=== PATIENT | female | born 1985 | race Hispanic/Latino ===

== ENCOUNTER 2016-12-31 13:28 | Emergency (ER) | payer MEDICAID, MEDICARE ==
--- NOTE | 2016-12-31 14:24 | RAD ---
RIGHT ANKLE 3 VIEWS: Date: 12/31/16 HISTORY: Right ankle pain. FINDINGS/IMPRESSION: No fracture, dislocation, or bony destruction is seen. The ankle mortise is maintained. Vascular miguel angel cifications are present. POS: [facility]
== END 2016-12-31 14:23 | disposition home or self-care (01) ==
LOC: NAV ERS 13:28
DX: S93.401A Sprain of unspecified ligament of right ankle, initial encounter (principal); E11.9 Type 2 diabetes mellitus without complications; I10 Essential (primary) hypertension; E66.9 Obesity, unspecified; Z79.82 Long term (current) use of aspirin; Z79.899 Other long term (current) drug therapy; X58.XXXA Exposure to other specified factors, initial encounter

== ENCOUNTER 2017-01-28 11:29 | Emergency (ER) | payer MEDICARE ==
[2017-01-28] MEDS ORDERED: Ketorolac Tromethamine 60 MG/2 ML VIAL ONE (11:50)
== END 2017-01-28 11:58 | disposition home or self-care (01) ==
LOC: NAV ERS 11:29
DX: S29.012A Strain of muscle and tendon of back wall of thorax, initial encounter (principal); S39.011A Strain of muscle, fascia and tendon of abdomen, initial encounter; E11.9 Type 2 diabetes mellitus without complications; I10 Essential (primary) hypertension; E66.9 Obesity, unspecified; Z79.899 Other long term (current) drug therapy; Z79.82 Long term (current) use of aspirin; X58.XXXA Exposure to other specified factors, initial encounter
CPT/HCPCS: 96372; J1885

== ENCOUNTER 2017-01-29 10:46 | Outpatient (CLI) | payer MEDICARE ==
[2017-01-29 12:10] LABS: #Basophils 0.1 thou/uL (0.0-0.2); #Eosinphils 0.3 thou/uL (0.0-0.7); #Lymphocytes 1.6 thou/uL (1.20-3.40); #Monocytes 0.5 thou/uL (0.11-0.59); %Basophils 0.6 % (0.0-1.0); %Eosinophils 3.6 % (0.0-10.0); %Lymphocytes 18.7 % (21.0-51.0); %Monocytes 6.4 % (0.0-10.0); %Neutrophils 70.7 % (42.0-75.0); Mean Corpuscular HGB CONC 30.7 g/dL (32.0-36.0); Mean Corpuscular Hemoglobin 27.6 pg (27.0-31.0); Mean Corpuscular Volume 89.8 fl (81.0-99.0); Mean Platelet Volume 7.1 fL (7.4-10.4); Platelet Count 357 thou/uL (130-400); RBC Distribution Width 14.5 % (11.5-14.5); Red Blood Cell (RBC) Count 5.43 mill/uL (4.20-5.40); White Blood Cell (WBC) Count 8.5 thou/uL (4.8-10.8)
[2017-01-29 14:40] LABS: ALT (SGPT) 20 U/L (0-55); AST (SGOT) 22 U/L (5-34); Albumin 3.8 g/dL (3.5-5.0); Alkaline Phosphatase 157 U/L (40-150); Amylase 23 U/L (25-125); Anion Gap 15 mmol/L (10-20); BUN (Urea Nitrogen) 31 mg/dL (7.0-18.7); Bilirubin, Total 0.5 mg/dL (0.2-1.2); Calc. Creatinine Clearance 0 mL/min (70-130); Calcium 9.5 mg/dL (7.8-10.44); Carbon Dioxide 22 mmol/L (22-29); Chloride 108 mmol/L (98-107); Estimated GFR-MDRD 37; Globulin 2.7 g/dL (2.4-3.5); Glucose 114 mg/dL (70-105); Lipase 8 U/L (8-78); Magnesium 1.9 mg/dL (1.6-2.6); Phosphorus 3.7 mg/dL (2.3-4.7); Protein, Total 6.5 g/dL (6.0-8.3); Sodium 140 mmol/L (136-145); Uric Acid 8.2 mg/dL (2.6-6.0)
== END 2017-01-29 10:47 | disposition home or self-care (01) ==
LOC: NAV LAB 10:46
PROVIDERS: ATTEND Transplant Surgery
DX: Z51.81 Encounter for therapeutic drug level monitoring (principal); Z94.0 Kidney transplant status; Z94.83 Pancreas transplant status
CPT/HCPCS: 36415; 80053; 80197; 82150; 83690; 83735; 84100; 84550; 85025

== ENCOUNTER 2017-03-08 10:39 | Emergency (ER) | payer MEDICARE, MEDICAID | END 2017-03-08 12:02 | disposition home or self-care (01) | LOC: NAV ERS 10:39 | DX: J02.9 Acute pharyngitis, unspecified (principal); E11.9 Type 2 diabetes mellitus without complications; I10 Essential (primary) hypertension; E66.9 Obesity, unspecified; Z94.0 Kidney transplant status; Z79.899 Other long term (current) drug therapy; Z79.82 Long term (current) use of aspirin | CPT/HCPCS: 87081; 87430; 99283 ==

== ENCOUNTER 2017-03-22 11:55 | Emergency (ER) | payer MEDICARE, MEDICAID | END 2017-03-22 12:34 | disposition home or self-care (01) | LOC: NAV ERS 11:55 | DX: S46.811A Strain of other muscles, fascia and tendons at shoulder and upper arm level, right arm, initial encounter (principal); E11.9 Type 2 diabetes mellitus without complications; I10 Essential (primary) hypertension; N19 Unspecified kidney failure; E66.9 Obesity, unspecified; Z79.82 Long term (current) use of aspirin; Z79.899 Other long term (current) drug therapy; Z79.84 Long term (current) use of oral hypoglycemic drugs; Z94.0 Kidney transplant status; X50.0XXA Overexertion from strenuous movement or load, initial encounter | CPT/HCPCS: 99283 ==

== ENCOUNTER 2017-04-08 18:26 | Emergency (ER) | payer MEDICARE, MEDICAID ==
[2017-04-08] MEDS ORDERED: Sodium Chloride 0.9% 250 ML 250 ML ONE (20:53)
--- NOTE | 2017-04-08 20:55 | CT ---
RIGHT ANKLE CT WITHOUT IV CONTRAST: 04/08/17 HISTORY: 32-year-old female with persistent right ankle pain. Injury several months ago with persistent swell ing. CT examination of the lower leg and ankle with incomplete visualization of the anterior portion of t he hindfoot and midfoot. There are fairly extensive arterial vascular calcifications. Very unusual i n this aged person except in a patient with diabetes or other medical conditions. Comparison is made to a prior right ankle examination, 12/29/16. There are very extensive destructive changes of the navicular bone with extensive fragmentation and marked displacement of the fragments. In addition, there are large irregular poorly circumscribed ar eas of lytic bone defect involving the talus, particularly the talar head and neck region, both ante romedially and posterolaterally. This extensive bone destructive changes and fragmentation did not h ave a typical appearance of acute fracture and these changes certainly were not present on the prior plain film of 12/31/16. Although certainly intervening trauma could result in the destructive and fr agmentation changes of the navicular bone, the changes of the talus do not have a typical posttrauma tic appearance. There is some soft tissue swelling around this region. This certainly raises concern for the possibility of extensive osteomyelitis. The complete midfoot is not evaluated and conceivab ly could be some additional findings in the midfoot. No evidence of talar dome osteochondral lesion. The distal tibia and tibia appear intact. The visualized calcaneus appears intact. 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 Irregular bony lytic changes involving the anteromedial talar head and neck as well as the posterolateral talar ne ck regions with diffuse soft tissue swelling around this region raising concern for extensive osteom yelitis. The navicular bone fragmentation in particular could also certainly be seen with diabetic o steoarthropathy and Charcot type joint. Conceivably the talar changes could be of similar origin. Followup nonemergent MRI examination of the ankle and midfoot is recommended for further assessment which will allow much better detailed evaluation of the associated soft tissue changes. POS: [facility]
[2017-04-08] MEDS ORDERED: HYDROcodone/Acetaminophen 5/325 mg Tablet ONE (21:24)
[2017-04-08 21:36] LABS: #Basophils 0.1 thou/uL (0.0-0.2); #Eosinphils 0.2 thou/uL (0.0-0.7); #Lymphocytes 2.1 thou/uL (1.20-3.40); #Monocytes 0.6 thou/uL (0.11-0.59); #Neutrophils 6.3 thou/uL (1.40-6.50); %Basophils 0.9 % (0.0-1.0); %Eosinophils 2.7 % (0.0-10.0); %Lymphocytes 22.4 % (21.0-51.0); %Monocytes 6.8 % (0.0-10.0); %Neutrophils 67.2 % (42.0-75.0); Hemoglobin 15.7 g/dL (12.0-16.0); Mean Corpuscular HGB CONC 30.9 g/dL (32.0-36.0); Mean Corpuscular Hemoglobin 27.9 pg (27.0-31.0); Mean Corpuscular Volume 90.3 fl (81.0-99.0); Mean Platelet Volume 7.2 fL (7.4-10.4); Platelet Count 307 thou/uL (130-400); RBC Distribution Width 14.9 % (11.5-14.5); Red Blood Cell (RBC) Count 5.63 mill/uL (4.20-5.40); White Blood Cell (WBC) Count 9.3 thou/uL (4.8-10.8)
[2017-04-08 21:48] LABS: ALT (SGPT) 21 U/L (8-55); AST (SGOT) 21 U/L (5-34); Alkaline Phosphatase 150 U/L (40-150); Anion Gap 17 mmol/L (10-20); BUN (Urea Nitrogen) 18 mg/dL (7.0-18.7); Bilirubin, Total 0.5 mg/dL (0.2-1.2); CRP (Inflammatory) 2.99 mg/dL (= or < 0.5); Calc. Creatinine Clearance 0 mL/min (70-130); Calcium 9.5 mg/dL (7.8-10.44); Carbon Dioxide 19 mmol/L (22-29); Chloride 106 mmol/L (98-107); Estimated GFR-MDRD 50; Globulin 3.2 g/dL (2.4-3.5); Glucose 115 mg/dL (70-105); Potassium 4.6 mmol/L (3.5-5.1); Protein, Total 7.2 g/dL (6.0-8.3); Sodium 137 mmol/L (136-145)
== END 2017-04-08 22:00 | disposition short-term general hospital (02) ==
LOC: NAV ERS 18:26
DX: S92.251A Displaced fracture of navicular [scaphoid] of right foot, initial encounter for closed fracture (principal); E66.9 Obesity, unspecified; I12.9 Hypertensive chronic kidney disease with stage 1 through stage 4 chronic kidney disease, or unspecified chronic kidney disease; E11.22 Type 2 diabetes mellitus with diabetic chronic kidney disease; N18.9 Chronic kidney disease, unspecified; Z79.899 Other long term (current) drug therapy; Z79.82 Long term (current) use of aspirin; X58.XXXA Exposure to other specified factors, initial encounter
CPT/HCPCS: 80053; 83605; 85025; 86140; 87040; 96365; J3370; J7050

== ENCOUNTER 2017-06-29 10:02 | Emergency (ER) | payer MEDICARE, MEDICAID ==
[2017-06-29] MEDS ORDERED: Promethazine HCl 25 MG/ML VIAL ONE (11:37)
[2017-06-29] MEDS ORDERED: Sodium Chloride 0.9% 2,000 ML ONE (11:37)
[2017-06-29] MEDS ORDERED: Acetaminophen 500 MG TAB ONE (11:37)
[2017-06-29] MEDS ORDERED: Sodium Chloride 0.9% 100 ML ONE (11:37)
[2017-06-29] MEDS ORDERED: Sodium Chloride 0.9% 0 ML ONE (11:37)
[2017-06-29] MEDS ORDERED: diphenhydrAMINE HCl 50 MG/ML 1 ML VIAL ONE (11:37)
[2017-06-29 12:04] LABS: Anion Gap 17 mmol/L (10-20); BUN (Urea Nitrogen) 17 mg/dL (7.0-18.7); Calc. Creatinine Clearance 0 mL/min (70-130); Calcium 9.3 mg/dL (7.8-10.44); Carbon Dioxide 19 mmol/L (22-29); Chloride 105 mmol/L (98-107); Estimated GFR-MDRD 53; Glucose 119 mg/dL (70-105); Potassium 4.6 mmol/L (3.5-5.1); Sodium 136 mmol/L (136-145)
[2017-06-29 12:23] LABS: Band 1 % (5-11); Eosinophils 4 % (0-10); Hemoglobin 15.9 g/dL (12.0-16.0); Lymphocytes 19 % (21-51); MDiff Complete? YES; Mean Corpuscular HGB CONC 30.3 g/dL (32.0-36.0); Mean Corpuscular Hemoglobin 26.9 pg (27.0-31.0); Mean Corpuscular Volume 88.6 fl (81.0-99.0); Mean Platelet Volume 7.6 fL (7.4-10.4); Monocytes 4 % (0-10); Neutrophil 72 % (42-75); PLT Morphology Comment Appears Adequate; Platelet Count 143 thou/uL (130-400); Red Blood Cell (RBC) Count 5.91 mill/uL (4.20-5.40); White Blood Cell (WBC) Count 9.3 thou/uL (4.8-10.8)
[2017-06-29] MEDS ORDERED: Magnesium Sulfate 2 GM/NS 0.9% 50 ML BAG ONE (13:22)
[2017-06-29] MEDS ORDERED: Lorazepam 2 MG/ML VIAL ONE (14:06)
== END 2017-06-29 14:26 | disposition home or self-care (01) ==
LOC: NAV ERS 10:02
DX: G43.909 Migraine, unspecified, not intractable, without status migrainosus (principal); E86.0 Dehydration; K52.9 Noninfective gastroenteritis and colitis, unspecified; E11.9 Type 2 diabetes mellitus without complications; I10 Essential (primary) hypertension; E66.9 Obesity, unspecified; Z79.899 Other long term (current) drug therapy; Z79.82 Long term (current) use of aspirin
CPT/HCPCS: 80048; 85025; 96361; 96365; 96367; 96375; J1200; J2060; J2550; J3475; J7050

== ENCOUNTER 2017-08-03 19:53 | Emergency (ER) | payer MEDICARE, MEDICAID ==
[2017-08-03] MEDS ORDERED: Dexamethasone 4 mg/ml Vial ONE (20:27)
== END 2017-08-03 20:45 | disposition home or self-care (01) ==
LOC: NAV ERS 19:53
DX: J02.9 Acute pharyngitis, unspecified (principal); J04.0 Acute laryngitis; E66.9 Obesity, unspecified; I10 Essential (primary) hypertension; Z79.82 Long term (current) use of aspirin; Z79.899 Other long term (current) drug therapy
CPT/HCPCS: 87081; 87430; 96372; J1100

== ENCOUNTER 2017-11-05 06:58 | Emergency (ER) | payer MEDICARE, MEDICAID ==
[2017-11-05] MEDS ORDERED: Ondansetron ODT 4 MG TAB ONE (07:58)
[2017-11-05] MEDS ORDERED: Ketorolac Tromethamine 30 MG/ML VIAL ONE (07:58)
== END 2017-11-05 08:23 | disposition home or self-care (01) ==
LOC: NAV ERS 06:58
DX: J01.90 Acute sinusitis, unspecified (principal); G43.909 Migraine, unspecified, not intractable, without status migrainosus; E11.9 Type 2 diabetes mellitus without complications; I10 Essential (primary) hypertension; E66.9 Obesity, unspecified; Z94.0 Kidney transplant status
CPT/HCPCS: 96372; J1885; Q0162

== ENCOUNTER 2017-11-10 09:38 | Emergency (ER) | payer MEDICARE, MEDICAID | END 2017-11-10 10:48 | disposition home or self-care (01) | LOC: NAV ERS 09:38 | DX: J11.1 Influenza due to unidentified influenza virus with other respiratory manifestations (principal); E11.9 Type 2 diabetes mellitus without complications; I10 Essential (primary) hypertension; E66.9 Obesity, unspecified; G43.909 Migraine, unspecified, not intractable, without status migrainosus; Z79.82 Long term (current) use of aspirin; Z79.899 Other long term (current) drug therapy; Z79.84 Long term (current) use of oral hypoglycemic drugs | CPT/HCPCS: 99283 ==

== ENCOUNTER 2017-11-18 13:44 | Emergency (ER) | payer MEDICARE, MEDICAID ==
[2017-11-18 14:37] LABS: #Basophils 0.1 thou/uL (0.0-0.2); #Lymphocytes 0.7 thou/uL (1.20-3.40); #Monocytes 0.9 thou/uL (0.11-0.59); %Basophils 1.1 % (0.0-1.0); %Eosinophils 0.3 % (0.0-10.0); %Lymphocytes 9.5 % (21.0-51.0); %Monocytes 11.2 % (0.0-10.0); Hemoglobin 14.7 g/dL (12.0-16.0); Mean Corpuscular HGB CONC 31.1 g/dL (32.0-36.0); Mean Corpuscular Hemoglobin 27.3 pg (27.0-31.0); Mean Corpuscular Volume 87.6 fl (81.0-99.0); Mean Platelet Volume 9.5 fL (7.4-10.4); Platelet Count 243 thou/uL (130-400); RBC Distribution Width 13.8 % (11.5-14.5); Red Blood Cell (RBC) Count 5.38 mill/uL (4.20-5.40); White Blood Cell (WBC) Count 7.7 thou/uL (4.8-10.8)
[2017-11-18 14:53] LABS: ALT (SGPT) 39 U/L (8-55); AST (SGOT) 33 U/L (5-34); Albumin 3.8 g/dL (3.5-5.0); Alkaline Phosphatase 123 U/L (40-150); Anion Gap 15 mmol/L (10-20); BUN (Urea Nitrogen) 18 mg/dL (7.0-18.7); Bilirubin, Total 0.5 mg/dL (0.2-1.2); Calc. Creatinine Clearance 0 mL/min (70-130); Carbon Dioxide 21 mmol/L (22-29); Chloride 105 mmol/L (98-107); Estimated GFR-MDRD 41; Glucose 108 mg/dL (70-105); Potassium 4.3 mmol/L (3.5-5.1); Protein, Total 6.8 g/dL (6.0-8.3); Sodium 137 mmol/L (136-145)
--- NOTE | 2017-11-18 14:56 | RAD ---
PA AND LATERAL CHEST: History: Cough and congestion. FINDINGS: Heart size is upper limits of normal. Mediastinal structures are unremarkable. The lungs are clear of infiltrates. No significant bony findings. IMPRESSION: No active intrathoracic disease. POS: [facility]
== END 2017-11-18 15:21 | disposition home or self-care (01) ==
LOC: NAV ERS 13:44
DX: J06.9 Acute upper respiratory infection, unspecified (principal); R11.2 Nausea with vomiting, unspecified; G43.909 Migraine, unspecified, not intractable, without status migrainosus; E11.9 Type 2 diabetes mellitus without complications; I10 Essential (primary) hypertension; E66.9 Obesity, unspecified; Z79.899 Other long term (current) drug therapy; Z79.82 Long term (current) use of aspirin
CPT/HCPCS: 71046; 80053; 85025

== ENCOUNTER 2017-11-20 21:42 | Emergency (ER) | payer MEDICARE, MEDICAID ==
[2017-11-20] MEDS ORDERED: Ondansetron HCl/PF 4 MG/2 ML Vial ONE (22:11)
[2017-11-20] MEDS ORDERED: Sodium Chloride 0.9% 1,000 ML ONE (22:11)
[2017-11-20 22:18] LABS: Bilirubin Negative (Negative); Blood, Urine Negative (Negative); Glucose, Urine (Dipstick) Negative (Negative); Leukocyte Trace (Negative); Nitrite Negative (Negative); Protein, Urine (Dipstick) Trace mg/dL (Neg-Trace)
[2017-11-20 22:21] LABS: Clarity Hazy (Clear)
[2017-11-20] MEDS ORDERED: Oseltamivir 75 MG CAP ONE (22:28)
[2017-11-20 22:37] LABS: Bacteria/HPF 3+ HPF (None Seen); Squamous Epithelial 0-3 HPF (0-3)
[2017-11-20] MEDS ORDERED: Famotidine/PF 20 mg/2ml Vial ONE (22:55)
[2017-11-20] MEDS ORDERED: Pantoprazole 40 MG VIAL ONE (22:56)
--- NOTE | 2017-11-21 07:38 | RAD ---
CHEST 1 VIEW: HISTORY: Cough. COMPARISON: 11/18/17. FINDINGS: Cardiac silhouette is magnified and upper limits of normal in size. Shallow inspiration accentuates pulmonary markings. Pulmonary vasculature is slightly engorged. There is no lobar consolidation or evidence of pneumothorax. IMPRESSION: Mild pulmonary vascular congestion. Borderline cardiomegaly. POS: [facility]
== END 2017-11-21 00:55 | disposition home or self-care (01) ==
LOC: NAV ERS 21:42
DX: J10.1 Influenza due to other identified influenza virus with other respiratory manifestations (principal); G43.909 Migraine, unspecified, not intractable, without status migrainosus; E11.9 Type 2 diabetes mellitus without complications; I10 Essential (primary) hypertension; E66.9 Obesity, unspecified; Z79.899 Other long term (current) drug therapy; Z79.82 Long term (current) use of aspirin
CPT/HCPCS: 71045; 81003; 81015; 87081; 87430; 87804; 96361; 96374; 96375; C9113; J2270; J2405; J7050; S0028

== ENCOUNTER 2017-11-21 14:54 | Emergency (ER) | payer MEDICARE, MEDICAID ==
[2017-11-21] MEDS ORDERED: Sodium Chloride 0.9% 1,000 ML ONE ×2 (15:35→16:59)
[2017-11-21] MEDS ORDERED: Ondansetron HCl/PF 4 MG/2 ML Vial ONE (15:35)
--- NOTE | 2017-11-21 16:07 | RAD ---
CHEST ONE VIEW 11/21/17 HISTORY: Cough. COMPARISON: 11/20/17. FINDINGS: The cardiac silhouette is magnified by projection. Shallow inspiration accentuates pulmonary markings . Mediastinum is midline. There is no lobar consolidation or evidence of pneumothorax. IMPRESSION: No active cardiopulmonary abnormalities are demonstrated. POS: [facility]
[2017-11-21 16:13] LABS: #Basophils 0.1 thou/uL (0.0-0.2); #Lymphocytes 1.2 thou/uL (1.20-3.40); #Monocytes 0.6 thou/uL (0.11-0.59); #Neutrophils 6.4 thou/uL (1.40-6.50); %Basophils 0.6 % (0.0-1.0); %Lymphocytes 15.1 % (21.0-51.0); %Monocytes 6.9 % (0.0-10.0); %Neutrophils 77.4 % (42.0-75.0); Hemoglobin 15.7 g/dL (12.0-16.0); Mean Corpuscular HGB CONC 30.7 g/dL (32.0-36.0); Mean Corpuscular Hemoglobin 26.9 pg (27.0-31.0); Mean Corpuscular Volume 87.6 fl (81.0-99.0); Mean Platelet Volume 9.4 fL (7.4-10.4); Platelet Count 242 thou/uL (130-400); RBC Distribution Width 13.9 % (11.5-14.5); Red Blood Cell (RBC) Count 5.84 mill/uL (4.20-5.40); White Blood Cell (WBC) Count 8.2 thou/uL (4.8-10.8)
[2017-11-21 16:18] LABS: ALT (SGPT) 37 U/L (8-55); AST (SGOT) 42 U/L (5-34); Albumin 3.8 g/dL (3.5-5.0); Alkaline Phosphatase 126 U/L (40-150); Anion Gap 16 mmol/L (10-20); BUN (Urea Nitrogen) 13 mg/dL (7.0-18.7); Bilirubin, Total 0.5 mg/dL (0.2-1.2); CK (CPK) 110 U/L (29-168); CKMB 1.1 ng/mL (0-6.6); Calc. Creatinine Clearance 0 mL/min (70-130); Calcium 8.6 mg/dL (7.8-10.44); Carbon Dioxide 20 mmol/L (22-29); Chloride 103 mmol/L (98-107); Estimated GFR-MDRD 42; Glucose 103 mg/dL (70-105); Lipase 5 U/L (8-78); Potassium 4.4 mmol/L (3.5-5.1); Protein, Total 6.8 g/dL (6.0-8.3); Sodium 135 mmol/L (136-145); Troponin I 0.015 ng/mL (< 0.028)
[2017-11-21] MEDS ORDERED: Metoclopramide HCl 10 MG/2 ML VIAL ONE (16:38)
[2017-11-21] MEDS ORDERED: diphenhydrAMINE 50 MG/ML VIAL ONE (16:38)
[2017-11-21 17:34] LABS: Bilirubin Small (Negative); Blood, Urine Negative (Negative); Glucose, Urine (Dipstick) Negative (Negative); Leukocyte Small (Negative); Nitrite Negative (Negative); Protein, Urine (Dipstick) 30 mg/dL (Neg-Trace); Specific Gravity, Urine 1.025 (1.005-1.030)
[2017-11-21 17:35] LABS: Clarity SL HAZY (Clear)
[2017-11-21 17:44] LABS: Bacteria/HPF 3+ HPF (None Seen); RBC/HPF 0-3 HPF (0-3)
[2017-11-21] MEDS ORDERED: Acetaminophen 500 MG TAB ONE (18:52)
== END 2017-11-21 19:09 | disposition home or self-care (01) ==
LOC: NAV ERS 14:54
DX: J11.1 Influenza due to unidentified influenza virus with other respiratory manifestations (principal); E86.0 Dehydration; G43.909 Migraine, unspecified, not intractable, without status migrainosus; E11.9 Type 2 diabetes mellitus without complications; I10 Essential (primary) hypertension; E66.9 Obesity, unspecified; Z79.82 Long term (current) use of aspirin; Z79.52 Long term (current) use of systemic steroids; Z79.899 Other long term (current) drug therapy
CPT/HCPCS: 71045; 80053; 81003; 81015; 82150; 82553; 83690; 83880; 84484; 85025; 93005; 96361; 96365; 96375; J1200; J2270; J2405; J2765; J7050

== ENCOUNTER 2017-11-22 18:07 | Emergency (ER) | payer MEDICARE, MEDICAID ==
[2017-11-22] MEDS ORDERED: Promethazine HCl 25 MG/ML VIAL ONE (18:50)
== END 2017-11-22 19:10 | disposition home or self-care (01) ==
LOC: NAV ERS 18:07
DX: J10.1 Influenza due to other identified influenza virus with other respiratory manifestations (principal); G43.909 Migraine, unspecified, not intractable, without status migrainosus; E11.9 Type 2 diabetes mellitus without complications; I10 Essential (primary) hypertension; E66.9 Obesity, unspecified; Z79.82 Long term (current) use of aspirin; Z79.52 Long term (current) use of systemic steroids; Z79.899 Other long term (current) drug therapy
CPT/HCPCS: 96372; J2550

== ENCOUNTER 2018-10-06 05:05 | Emergency (ER) | payer MEDICARE, MEDICAID ==
--- NOTE | 2018-10-06 08:12 | RAD ---
RIGHT FOOT THREE VIEWS: History: Right foot injury. FINDINGS: Lisfranc joint alignment is anatomic. Plantar arch is maintained. Bulky osteophytosis of the hind jenny t and mid foot is best imaged on the lateral view. Articular surface irregularity involves the mid ta rsal joint. No acute fracture or dislocation is apparent. Calcification over the arterial structures. IMPRESSION: 1. Prominent degenerative changes of the hind foot and midfoot. No acute osseous abnormalities are de monstrated. 2. Atherosclerosis. POS: [facility]
== END 2018-10-06 06:05 | disposition home or self-care (01) ==
LOC: NAV ERS 05:05
DX: M79.671 Pain in right foot (principal); G43.909 Migraine, unspecified, not intractable, without status migrainosus; E11.9 Type 2 diabetes mellitus without complications; I10 Essential (primary) hypertension; E66.9 Obesity, unspecified; Z79.899 Other long term (current) drug therapy; Z79.82 Long term (current) use of aspirin

== ENCOUNTER 2018-10-06 17:32 | Emergency (ER) | payer MEDICARE, MEDICAID | END 2018-10-06 19:05 | disposition home or self-care (01) | LOC: NAV ERS 17:32 | DX: S39.012A Strain of muscle, fascia and tendon of lower back, initial encounter (principal); G89.29 Other chronic pain; M79.671 Pain in right foot; G43.909 Migraine, unspecified, not intractable, without status migrainosus; E11.9 Type 2 diabetes mellitus without complications; E66.9 Obesity, unspecified; Z79.899 Other long term (current) drug therapy; Z79.82 Long term (current) use of aspirin; X50.1XXA Overexertion from prolonged static or awkward postures, initial encounter | CPT/HCPCS: 99283 ==

== ENCOUNTER 2018-10-16 16:45 | Emergency (ER) | payer MEDICARE, MEDICAID | END 2018-10-16 17:25 | disposition home or self-care (01) | LOC: NAV ERS 16:45 | DX: M54.5 Low back pain (principal); G89.29 Other chronic pain; E11.9 Type 2 diabetes mellitus without complications; E66.9 Obesity, unspecified; G43.909 Migraine, unspecified, not intractable, without status migrainosus; Z79.82 Long term (current) use of aspirin; Z79.899 Other long term (current) drug therapy; Z79.891 Long term (current) use of opiate analgesic | CPT/HCPCS: 99281 ==

== ENCOUNTER 2018-11-27 17:37 | Emergency (ER) | payer MEDICARE, MEDICAID | END 2018-11-27 18:59 | disposition home or self-care (01) | LOC: NAV ERS 17:37 | DX: E11.40 Type 2 diabetes mellitus with diabetic neuropathy, unspecified (principal); M54.9 Dorsalgia, unspecified; G89.29 Other chronic pain; G43.909 Migraine, unspecified, not intractable, without status migrainosus; E66.9 Obesity, unspecified; Z79.82 Long term (current) use of aspirin; Z79.899 Other long term (current) drug therapy | CPT/HCPCS: 99283 ==

== ENCOUNTER 2019-02-09 19:59 | Emergency (ER) | payer MEDICARE, MEDICAID ==
[2019-02-09] MEDS ORDERED: Ketorolac Tromethamine 60 MG/2 ML VIAL ONE (20:26)
== END 2019-02-09 22:03 | disposition home or self-care (01) ==
LOC: NAV ERS 19:59
DX: M54.5 Low back pain (principal); G89.29 Other chronic pain; G43.909 Migraine, unspecified, not intractable, without status migrainosus; E11.9 Type 2 diabetes mellitus without complications; E66.9 Obesity, unspecified; Z79.899 Other long term (current) drug therapy; Z79.82 Long term (current) use of aspirin
CPT/HCPCS: 96372; J1885

== ENCOUNTER 2019-06-20 19:04 | Emergency (ER) | payer MEDICARE, MEDICAID ==
[2019-06-20] MEDS ORDERED: Mag-Al Plus 1200 MG/1200 MG/120 MG/30 ML UDCUP ONE (19:23)
[2019-06-20] MEDS ORDERED: Lidocaine Viscous Sol 2% 15 ml UD Cup ONE (19:23)
== END 2019-06-20 20:05 | disposition home or self-care (01) ==
LOC: NAV ERS 19:04
DX: G43.909 Migraine, unspecified, not intractable, without status migrainosus (principal); E11.9 Type 2 diabetes mellitus without complications; F41.9 Anxiety disorder, unspecified; Z79.82 Long term (current) use of aspirin; Z79.899 Other long term (current) drug therapy
CPT/HCPCS: 87081; 87430; 99283

== ENCOUNTER 2019-07-19 19:30 | Emergency (ER) | payer MEDICARE, MEDICAID ==
[2019-07-19] MEDS ORDERED: Sodium Chloride 0.9% 2,000 ML ONE (20:08)
[2019-07-19 20:32] LABS: #Eosinphils 0.2 thou/uL (0.0-0.7); #Lymphocytes 2.7 thou/uL (1.20-3.40); #Monocytes 0.5 thou/uL (0.11-0.59); #Neutrophils 4.4 thou/uL (1.40-6.50); %Basophils 0.6 % (0.0-1.0); %Eosinophils 2.9 % (0.0-10.0); %Lymphocytes 34.1 % (21.0-51.0); %Neutrophils 56.4 % (42.0-75.0); Hemoglobin 14.4 g/dL (12.0-16.0); Mean Corpuscular HGB CONC 30.1 g/dL (32.0-36.0); Mean Corpuscular Hemoglobin 26.5 pg (27.0-31.0); Mean Platelet Volume 6.9 fL (7.4-10.4); Platelet Count 304 thou/uL (130-400); RBC Distribution Width 14.8 % (11.5-14.5); Red Blood Cell (RBC) Count 5.44 mill/uL (4.20-5.40); White Blood Cell (WBC) Count 7.8 thou/uL (4.8-10.8)
[2019-07-19 20:51] LABS: ALT (SGPT) 26 U/L (8-55); AST (SGOT) 19 U/L (5-34); Albumin 3.6 g/dL (3.5-5.0); Alkaline Phosphatase 99 U/L (40-110); Anion Gap 16 mmol/L (10-20); BUN (Urea Nitrogen) 20 mg/dL (7.0-18.7); Bilirubin, Total 0.3 mg/dL (0.2-1.2); Calc. Creatinine Clearance 0 mL/min (70-130); Calcium 8.8 mg/dL (7.8-10.44); Carbon Dioxide 20 mmol/L (22-29); Chloride 103 mmol/L (98-107); Estimated GFR-MDRD 48; Globulin 2.7 g/dL (2.4-3.5); Glucose 103 mg/dL (70-105); Potassium 4.3 mmol/L (3.5-5.1); Protein, Total 6.3 g/dL (6.0-8.3); Sodium 135 mmol/L (136-145)
[2019-07-19 20:52] LABS: Lipase 15 U/L (8-78)
--- NOTE | 2019-07-19 21:02 | RAD ---
TWO VIEWS OF THE CHEST: 07/19/19 COMPARISON: 11/21/17 HISTORY: Weakness, hypotension. FINDINGS: Stable prominence of the cardiac silhouette and mild pulmonary vascular prominence. No pneumothorax, pleural fluid, focal consolidation or alveolar edema. IMPRESSION: No acute findings. POS: [facility]
[2019-07-19 21:18] LABS: Bilirubin Negative (Negative); Blood, Urine Trace (Negative); Clarity Clear (Clear); Glucose, Urine (Dipstick) Negative (Negative); Leukocyte Trace (Negative); Nitrite Negative (Negative); Protein, Urine (Dipstick) Negative (Neg-Trace); Urobilinogen 0.2 mg/dL (Less than 2)
[2019-07-19 21:26] LABS: RBC/HPF 0-3 HPF (0-3); Squamous Epithelial 0-3 HPF (0-3); WBC/HPF 0-3 HPF (0-3)
[2019-07-21 17:17] LABS: Valproic Acid (Depakene) Less than 12.5 ug/mL (50.0-100.0)
== END 2019-07-19 22:22 | disposition home or self-care (01) ==
LOC: NAV ERS 19:30
DX: R42 Dizziness and giddiness (principal); G43.909 Migraine, unspecified, not intractable, without status migrainosus; F41.9 Anxiety disorder, unspecified; E11.9 Type 2 diabetes mellitus without complications; Z79.899 Other long term (current) drug therapy; Z79.82 Long term (current) use of aspirin
CPT/HCPCS: 71046; 80053; 80164; 81003; 81015; 83605; 83690; 85025; 87040; 87086; 87149; 93005; 96360; J7050

== ENCOUNTER 2019-08-06 13:09 | Emergency (ER) | payer MEDICARE, MEDICAID ==
[2019-08-06] MEDS ORDERED: Sodium Chloride 0.9% 1,000 ML ONE (13:48)
[2019-08-06] MEDS ORDERED: diphenhydrAMINE 50 MG/ML VIAL ONE (13:49)
[2019-08-06] MEDS ORDERED: Ondansetron PF 4 MG/2 ML Vial ONE ×2 (13:49→13:51)
[2019-08-06] MEDS ORDERED: Metoclopramide HCl 10 MG/2 ML VIAL ONE (13:50)
[2019-08-06 13:56] LABS: #Basophils 0.1 thou/uL (0.0-0.2); #Lymphocytes 1.9 thou/uL (1.20-3.40); #Monocytes 0.7 thou/uL (0.11-0.59); #Neutrophils 5.5 thou/uL (1.40-6.50); %Basophils 0.7 % (0.0-1.0); %Eosinophils 0.5 % (0.0-10.0); %Lymphocytes 23.5 % (21.0-51.0); %Monocytes 8.2 % (0.0-10.0); %Neutrophils 67.2 % (42.0-75.0); Hemoglobin 14.7 g/dL (12.0-16.0); Mean Corpuscular HGB CONC 30.6 g/dL (32.0-36.0); Mean Corpuscular Hemoglobin 27.3 pg (27.0-31.0); Mean Corpuscular Volume 89.1 fL (78.0-98.0); Platelet Count 394 thou/uL (130-400); RBC Distribution Width 15.3 % (11.5-14.5); Red Blood Cell (RBC) Count 5.39 mill/uL (4.20-5.40); White Blood Cell (WBC) Count 8.1 thou/uL (4.8-10.8)
[2019-08-06 14:02] LABS: ALT (SGPT) 23 U/L (8-55); AST (SGOT) 15 U/L (5-34); Albumin 4.1 g/dL (3.5-5.0); Alkaline Phosphatase 97 U/L (40-110); Anion Gap 16 mmol/L (10-20); BUN (Urea Nitrogen) 14 mg/dL (7.0-18.7); Bilirubin, Total 0.4 mg/dL (0.2-1.2); CK (CPK) 27 U/L (29-168); Calc. Creatinine Clearance 0 mL/min (70-130); Calcium 9.5 mg/dL (7.8-10.44); Carbon Dioxide 22 mmol/L (22-29); Chloride 106 mmol/L (98-107); Estimated GFR-MDRD 56; Globulin 2.9 g/dL (2.4-3.5); Glucose 115 mg/dL (70-105); Lipase 6 U/L (8-78); Potassium 3.9 mmol/L (3.5-5.1); Sodium 140 mmol/L (136-145)
[2019-08-06 14:52] LABS: Bilirubin Negative (Negative); Blood, Urine Negative (Negative); Clarity Clear (Clear); Glucose, Urine (Dipstick) Negative (Negative); Leukocyte Negative (Negative); Nitrite Negative (Negative); Protein, Urine (Dipstick) Negative (Neg-Trace); Urobilinogen 0.2 mg/dL (Less than 2)
[2019-08-06 15:00] LABS: Pregnancy Test - Urine (BHCG) Negative (Negative); Pregu Control Background? CLEAR/WHITE (CLR/WHITE); Pregu Control Bar Appear? YES (CONTROL BAR)
--- NOTE | 2019-08-06 15:38 | RAD ---
XR Abdomen 2 View/1 View Cxr History: Nausea and vomiting Comparison: Radiograph July 2019 Findings: Lungs are mildly hypoinflated with atelectatic changes lung bases. Heart size upper limits normal. No pneumothorax. No effusion. No confluent airspace consolidation. No free air under the hemidiaphragms on the upright view although there is overpenetration somewhat l imiting this evaluation. No dilated air-filled loops of large or small bowel. Calcifications project over the right pelvis. Surgical clips left hemipelvis. Impression: No acute intrathoracic or intra-abdominal abnormality.
== END 2019-08-06 17:15 | disposition home or self-care (01) ==
LOC: NAV ERS 13:09
DX: E86.0 Dehydration (principal); R42 Dizziness and giddiness; R11.2 Nausea with vomiting, unspecified; G43.909 Migraine, unspecified, not intractable, without status migrainosus; E11.9 Type 2 diabetes mellitus without complications; F41.9 Anxiety disorder, unspecified; Z79.899 Other long term (current) drug therapy; Z79.82 Long term (current) use of aspirin
CPT/HCPCS: 36415; 74022; 80053; 81003; 81025; 82550; 83605; 83690; 84484; 85025; 93005; 96361; 96365; 96375; J1200; J2405; J2765; J7050

== ENCOUNTER 2019-11-19 22:01 | Emergency (ER) | payer MEDICARE, MEDICAID ==
[2019-11-19] MEDS ORDERED: Ondansetron ODT 4 MG TAB ONE (22:20)
[2019-11-19] MEDS ORDERED: Sodium Chloride 0.9% 1,000 ML ONE ×2 (22:20→23:18)
[2019-11-19 22:40] LABS: #Basophils 0.1 thou/uL (0.0-0.2); #Monocytes 0.5 thou/uL (0.11-0.59); #Neutrophils 5.2 thou/uL (1.40-6.50); %Basophils 0.6 % (0.0-1.0); %Eosinophils 0.4 % (0.0-10.0); %Lymphocytes 40.9 % (21.0-51.0); %Monocytes 5.3 % (0.0-10.0); %Neutrophils 52.8 % (42.0-75.0); Hemoglobin 14.3 g/dL (12.0-16.0); Mean Corpuscular HGB CONC 32.4 g/dL (32.0-36.0); Mean Corpuscular Hemoglobin 28.2 pg (27.0-31.0); Mean Platelet Volume 7.6 fL (7.4-10.4); Platelet Count 408 thou/uL (130-400); RBC Distribution Width 13.6 % (11.5-14.5); Red Blood Cell (RBC) Count 5.07 mill/uL (4.20-5.40); White Blood Cell (WBC) Count 9.9 thou/uL (4.8-10.8)
[2019-11-19 23:01] LABS: ALT (SGPT) 27 U/L (8-55); AST (SGOT) 21 U/L (5-34); Albumin 4.2 g/dL (3.5-5.0); Alkaline Phosphatase 119 U/L (40-110); Anion Gap 18 mmol/L (10-20); BUN (Urea Nitrogen) 16 mg/dL (7.0-18.7); Bilirubin, Total 0.6 mg/dL (0.2-1.2); Calc. Creatinine Clearance 0 mL/min (70-130); Calcium 9.5 mg/dL (7.8-10.44); Carbon Dioxide 17 mmol/L (22-29); Chloride 108 mmol/L (98-107); Estimated GFR-MDRD 42; Globulin 2.9 g/dL (2.4-3.5); Glucose 107 mg/dL (70-105); Lipase 8 U/L (8-78); Potassium 3.7 mmol/L (3.5-5.1); Protein, Total 7.1 g/dL (6.0-8.3); Sodium 139 mmol/L (136-145)
[2019-11-19] MEDS ORDERED: Morphine 4 MG/ML VIAL ONE (23:15)
[2019-11-19] MEDS ORDERED: Ondansetron PF 4 MG/2 ML Vial ONE (23:15)
[2019-11-19 23:30] LABS: Bilirubin Small (Negative); Blood, Urine Large (Negative); Clarity Slightly Cloudy (Clear); Glucose, Urine (Dipstick) Negative (Negative); Leukocyte Negative (Negative); Nitrite Negative (Negative); Protein, Urine (Dipstick) 30 mg/dL (Neg-Trace)
[2019-11-19 23:34] LABS: RBC/HPF Greater than 50 HPF (0-3); WBC/HPF 0-3 HPF (0-3)
[2019-11-19 23:35] LABS: Bacteria/HPF Rare-Few HPF (None Seen)
[2019-11-20] MEDS ORDERED: Oseltamivir 75 MG CAP ONE (00:21)
== END 2019-11-20 00:33 | disposition home or self-care (01) ==
LOC: NAV ERS 22:01
DX: J11.1 Influenza due to unidentified influenza virus with other respiratory manifestations (principal); R11.2 Nausea with vomiting, unspecified; G43.909 Migraine, unspecified, not intractable, without status migrainosus; E11.9 Type 2 diabetes mellitus without complications; F41.9 Anxiety disorder, unspecified; Z79.899 Other long term (current) drug therapy; Z79.82 Long term (current) use of aspirin
CPT/HCPCS: 36415; 80053; 81003; 81015; 83690; 85025; 87804; 96361; 96374; 96375; J2270; J2405; J7050; Q0162

== ENCOUNTER 2019-12-31 00:24 | Emergency (ER) | payer MEDICARE, MEDICAID ==
[2019-12-31] MEDS ORDERED: Sodium Chloride 0.9% 1,000 ML ONE (00:57)
[2019-12-31] MEDS ORDERED: Ondansetron ODT 4 MG TAB ONE (00:57)
[2019-12-31 01:19] LABS: #Basophils 0.1 thou/uL (0.0-0.2); #Eosinphils 0.1 thou/uL (0.0-0.7); #Lymphocytes 3.3 thou/uL (1.20-3.40); #Monocytes 0.7 thou/uL (0.11-0.59); %Basophils 1.2 % (0.0-1.0); %Eosinophils 0.6 % (0.0-10.0); %Lymphocytes 32.4 % (21.0-51.0); %Monocytes 6.4 % (0.0-10.0); %Neutrophils 59.3 % (42.0-75.0); Hemoglobin 14.5 g/dL (12.0-16.0); Mean Corpuscular HGB CONC 30.7 g/dL (32.0-36.0); Mean Corpuscular Hemoglobin 27.6 pg (27.0-31.0); Mean Corpuscular Volume 89.8 fL (78.0-98.0); Mean Platelet Volume 7.3 fL (7.4-10.4); Platelet Count 400 thou/uL (130-400); RBC Distribution Width 14.1 % (11.5-14.5); Red Blood Cell (RBC) Count 5.26 mill/uL (4.20-5.40)
[2019-12-31 01:30] LABS: Bilirubin Moderate (Negative); Blood, Urine Large (Negative); Clarity Cloudy (Clear); Glucose, Urine (Dipstick) 100 mg/dL (Negative); Leukocyte Negative (Negative); Nitrite Negative (Negative); Protein, Urine (Dipstick) 100 mg/dL (Neg-Trace)
[2019-12-31 01:31] LABS: Pregnancy Test - Urine (BHCG) Negative (Negative); Pregu Control Background? CLEAR/WHITE (CLR/WHITE); Pregu Control Bar Appear? YES (CONTROL BAR)
[2019-12-31 01:32] LABS: Bacteria/HPF None Seen HPF (None Seen); RBC/HPF Greater than 50 HPF (0-3); Squamous Epithelial 0-3 HPF (0-3)
[2019-12-31 01:40] LABS: ALT (SGPT) 25 U/L (8-55); AST (SGOT) 21 U/L (5-34); Albumin 4.5 g/dL (3.5-5.0); Alkaline Phosphatase 103 U/L (40-110); Anion Gap 19 mmol/L (10-20); BUN (Urea Nitrogen) 16 mg/dL (7.0-18.7); Bilirubin, Total 0.6 mg/dL (0.2-1.2); Calc. Creatinine Clearance 0 mL/min (70-130); Calcium 9.8 mg/dL (7.8-10.44); Carbon Dioxide 22 mmol/L (22-29); Chloride 103 mmol/L (98-107); Estimated GFR-MDRD 37; Globulin 2.8 g/dL (2.4-3.5); Glucose 115 mg/dL (70-105); Lipase 4 U/L (8-78); Magnesium 1.5 mg/dL (1.6-2.6); Protein, Total 7.3 g/dL (6.0-8.3); Sodium 140 mmol/L (136-145)
[2019-12-31] MEDS ORDERED: Lorazepam 2 MG/ML VIAL ONE (02:06)
== END 2019-12-31 02:25 | disposition home or self-care (01) ==
LOC: NAV ERS 00:24
DX: E11.43 Type 2 diabetes mellitus with diabetic autonomic (poly)neuropathy (principal); K31.84 Gastroparesis; E11.22 Type 2 diabetes mellitus with diabetic chronic kidney disease; N18.9 Chronic kidney disease, unspecified; G43.909 Migraine, unspecified, not intractable, without status migrainosus; F41.9 Anxiety disorder, unspecified; Z79.899 Other long term (current) drug therapy; Z79.82 Long term (current) use of aspirin
CPT/HCPCS: 36415; 80053; 81003; 81015; 81025; 83690; 83735; 85025; 96361; 96374; J2060; J7050; Q0162

== ENCOUNTER 2020-05-23 00:51 | Emergency (ER) | payer MEDICARE, MEDICAID ==
[2020-05-23] MEDS ORDERED: Ondansetron PF 4 MG/2 ML Vial ONE ×2 (02:05→04:00)
[2020-05-23 02:11] LABS: #Lymphocytes 2.9 thou/uL (1.20-3.40); #Monocytes 0.7 thou/uL (0.11-0.59); #Neutrophils 6.6 thou/uL (1.40-6.50); %Basophils 0.3 % (0.0-1.0); %Eosinophils 0.2 % (0.0-10.0); %Lymphocytes 28.1 % (21.0-51.0); %Monocytes 6.5 % (0.0-10.0); %Neutrophils 64.9 % (42.0-75.0); Hemoglobin 14.1 g/dL (12.0-16.0); Manual Diff?? NO; Mean Corpuscular Volume 86.2 fL (78.0-98.0); Mean Platelet Volume 7.6 fL (7.4-10.4); Platelet Count 307 thou/uL (130-400); RBC Distribution Width 15.3 % (11.5-14.5); Red Blood Cell (RBC) Count 5.65 mill/uL (4.20-5.40); White Blood Cell (WBC) Count 10.2 thou/uL (4.8-10.8)
[2020-05-23 02:25] LABS: Bilirubin Negative (Negative); Blood, Urine Trace (Negative); Clarity Clear (Clear); Glucose, Urine (Dipstick) Negative (Negative); Ketone, Urine Negative (Negative); Leukocyte Trace (Negative); Nitrite Negative (Negative); Protein, Urine (Dipstick) Trace mg/dL (Neg-Trace); Urobilinogen 0.2 mg/dL (Less than 2); pH, Urine 5.5 (5.0-9.0)
[2020-05-23 02:30] LABS: RBC/HPF 0-3 HPF (0-3)
[2020-05-23 02:30] LABS: Carbon Dioxide 19 mmol/L (22-29)
[2020-05-23 02:31] LABS: Bacteria/HPF None Seen HPF (None Seen)
[2020-05-23 02:33] LABS: ALT (SGPT) 26 U/L (8-55); AST (SGOT) 22 U/L (5-34); Albumin 4.3 g/dL (3.5-5.0); Alkaline Phosphatase 119 U/L (40-110); Anion Gap 17 mmol/L (10-20); BUN (Urea Nitrogen) 24 mg/dL (7.0-18.7); Bilirubin, Total 0.3 mg/dL (0.2-1.2); Calc. Creatinine Clearance 0 mL/min (70-130); Calcium 9.7 mg/dL (7.8-10.44); Chloride 106 mmol/L (98-107); Estimated GFR-MDRD 33; Globulin 3.5 g/dL (2.4-3.5); Glucose 115 mg/dL (70-105); Lipase 14 U/L (8-78); Potassium 4.1 mmol/L (3.5-5.1); Protein, Total 7.8 g/dL (6.0-8.3); Sodium 138 mmol/L (136-145)
== END 2020-05-23 05:01 | disposition home or self-care (01) ==
LOC: NAV ERS 00:51
DX: E86.0 Dehydration (principal); E11.43 Type 2 diabetes mellitus with diabetic autonomic (poly)neuropathy; K31.84 Gastroparesis; G43.909 Migraine, unspecified, not intractable, without status migrainosus; F41.9 Anxiety disorder, unspecified; Z79.899 Other long term (current) drug therapy
CPT/HCPCS: 80053; 81003; 81015; 83690; 85025; 96361; 96374; 96376; J2405

== ENCOUNTER 2020-07-23 14:26 | Emergency (ER) | payer MEDICARE, MEDICAID ==
[2020-07-23] MEDS ORDERED: diphenhydrAMINE 50 MG/ML VIAL ONE (15:12)
[2020-07-23] MEDS ORDERED: Sodium Chloride 0.9% 100 ML ONE ×2 (15:12→17:32)
[2020-07-23] MEDS ORDERED: Ondansetron PF 4 MG/2 ML Vial ONE (15:12)
[2020-07-23] MEDS ORDERED: Metoclopramide HCl 10 MG/2 ML VIAL ONE ×2 (15:12→17:32)
[2020-07-23] MEDS ORDERED: Sodium Chloride 0.9% 1,000 ML ONE (15:15)
[2020-07-23 15:29] LABS: #Eosinphils 0.1 thou/uL (0.0-0.7); #Lymphocytes 1.1 thou/uL (1.20-3.40); #Monocytes 0.4 thou/uL (0.11-0.59); #Neutrophils 6.4 thou/uL (1.40-6.50); %Basophils 0.4 % (0.0-1.0); %Eosinophils 1.3 % (0.0-10.0); %Lymphocytes 13.8 % (21.0-51.0); %Monocytes 4.7 % (0.0-10.0); %Neutrophils 79.8 % (42.0-75.0); Hemoglobin 9.2 g/dL (12.0-16.0); Mean Corpuscular Hemoglobin 25.7 pg (27.0-31.0); Mean Corpuscular Volume 85.7 fL (78.0-98.0); Mean Platelet Volume 8.2 fL (7.4-10.4); Platelet Count 248 thou/uL (130-400); Red Blood Cell (RBC) Count 3.56 mill/uL (4.20-5.40)
[2020-07-23 15:45] LABS: ALT (SGPT) 16 U/L (8-55); AST (SGOT) 17 U/L (5-34); Albumin 4.1 g/dL (3.5-5.0); Alkaline Phosphatase 108 U/L (40-110); Anion Gap 19 mmol/L (10-20); BUN (Urea Nitrogen) 48 mg/dL (7.0-18.7); Bilirubin, Total 0.5 mg/dL (0.2-1.2); Calc. Creatinine Clearance 0 mL/min (70-130); Calcium 7.6 mg/dL (7.8-10.44); Carbon Dioxide 17 mmol/L (22-29); Chloride 104 mmol/L (98-107); Estimated GFR-MDRD 7; Globulin 3.2 g/dL (2.4-3.5); Glucose 105 mg/dL (70-105); Lipase 41 U/L (8-78); Potassium 4.9 mmol/L (3.5-5.1); Protein, Total 7.3 g/dL (6.0-8.3); Sodium 135 mmol/L (136-145)
[2020-07-23 15:57] LABS: Hypochromia SLIGHT = 6-15 cells (100X) (0-5/hpf); MDiff Complete? YES; Platelet Morphology Comment Appears Adequate
[2020-07-23] MEDS ORDERED: Metoprolol Tartrate 5 MG/5 ML VIAL ONE (16:00)
[2020-07-23] MEDS ORDERED: hydrALAZINE 20 MG/ML VIAL ONE (16:20)
[2020-07-23 17:04] LABS: Bilirubin Negative (Negative); Blood, Urine Moderate (Negative); Clarity Clear (Clear); Glucose, Urine (Dipstick) Negative (Negative); Ketone, Urine Negative (Negative); Leukocyte Trace (Negative); Nitrite Negative (Negative); Protein, Urine (Dipstick) 100 mg/dL (Neg-Trace); Urobilinogen 0.2 mg/dL (Less than 2); pH, Urine 5.5 (5.0-9.0)
[2020-07-23 17:05] LABS: Bacteria/HPF Rare-Few HPF (None Seen); Squamous Epithelial 0-3 HPF (0-3)
[2020-07-23] MEDS ORDERED: Acetaminophen 500 MG TAB ONE (17:08)
== END 2020-07-23 17:46 | disposition short-term general hospital (02) ==
LOC: NAV ERS 14:26
DX: E86.0 Dehydration (principal); N17.9 Acute kidney failure, unspecified; E11.43 Type 2 diabetes mellitus with diabetic autonomic (poly)neuropathy; K31.84 Gastroparesis; Z94.0 Kidney transplant status; F41.9 Anxiety disorder, unspecified; Z79.899 Other long term (current) drug therapy; Z94.83 Pancreas transplant status
CPT/HCPCS: 36415; 80053; 81003; 81015; 83690; 85025; 96361; 96365; 96375; 96376; J0360; J1200; J2405; J2765; J7050

== ENCOUNTER 2020-11-26 19:06 | Emergency (ER) | payer MEDICARE, MEDICAID ==
--- NOTE | 2020-11-26 20:39 | CT ---
CT OF THE ABDOMEN AND PELVIS WITHOUT IV CONTRAST INDICATION: 35-year-old female with history of abdominal pain and vomiting COMPARISON: Renal transplant ultrasound dated July 24, 2020 FINDINGS: The lack of IV contrast limits evaluation of the solid organs of the abdomen and pelvis. ABDOMEN: Lung bases: Clear Liver: No focal lesion. Gallbladder: Mildly distended Pancreas: Normal. Adrenal glands: Normal. Spleen: Normal. Kidneys and ureters: The [place] kidneys are atrophic. There is a left pelvic renal transplant without adriel hydronephrosis. There is mild perinephric fluid surrounding the left transplant kidney which is nonspecific. The bladder is largely decompressed. Vasculature: There are mild vascular calcifications seen involving the visualized vasculature. Lymph nodes:No lymphadenopathy. Free fluid in abdomen:No free fluid is evident. PELVIS: Small and large bowel: There is a mild amount retained stool within the colon. There is postprocedura l change of a partial small bowel resection with primary anastomosis in the right lower quadrant of the abdomen. The small bowel is of normal caliber. Appendix:Normal Bladder: Decompressed Rectal and perirectal soft tissues:Normal. Reproductive structures: There is a lobulated appearance of the uterus suspicious for underlying fibr oids. There is a lobulated cystic abnormality in the region of the left adnexa measuring 5.2 x 2.8 cm. The right adnexa is not well seen. Free fluid in pelvis: Mild free fluid Lymphadenopathy pelvis: No lymphadenopathy is evident. Osseous structures: No acute osseous abnormality. No destructive osteolytic or osteoblastic lesion i s identified. There is scattered degenerative and osteoarthritic changes. Soft tissues:There is a fat-containing supraumbilical and umbilicus hernia. IMPRESSION: 1. Atrophic [place] kidneys. Left pelvic renal transplant without adriel hydronephrosis. There is nonsp ecific perinephric fluid surrounding the left transplant kidney. 2. Lobulated cystic abnormality in the region of the left adnexa. Findings may reflect a complex cyst . Further evaluation with a pelvic also may be helpful for additional characterization. Lobulated appearance of the uterus is suspicious for underlying fibroid disease. 3. Other chronic findings as above.
[2020-11-26] MEDS ORDERED: Promethazine 25 MG TAB ONE (20:51)
== END 2020-11-26 20:55 | disposition home or self-care (01) ==
LOC: NAV ERS 19:06
DX: R11.2 Nausea with vomiting, unspecified (principal); R53.1 Weakness; R10.32 Left lower quadrant pain
CPT/HCPCS: 74176; Q0169

== ENCOUNTER 2020-12-16 18:28 | Emergency (ER) | payer MEDICARE, MEDICAID ==
[2020-12-16] MEDS ORDERED: Morphine 4 MG/ML VIAL ONE ×2 (20:09→20:11)
[2020-12-16] MEDS ORDERED: Ondansetron ODT 4 MG TAB ONE ×2 (20:09→23:25)
[2020-12-16 20:23] LABS: #Lymphocytes 1.7 thou/uL (1.20-3.40); #Monocytes 0.5 thou/uL (0.11-0.59); #Neutrophils 4.6 thou/uL (1.40-6.50); %Basophils 0.4 % (0.0-1.0); %Lymphocytes 24.5 % (21.0-51.0); %Monocytes 7.1 % (0.0-10.0); Hemoglobin 8.2 g/dL (12.0-16.0); Mean Corpuscular HGB CONC 31.5 g/dL (32.0-36.0); Mean Corpuscular Hemoglobin 28.7 pg (27.0-31.0); Mean Corpuscular Volume 90.8 fL (78.0-98.0); Mean Platelet Volume 8.9 fL (7.4-10.4); Platelet Count 167 thou/uL (130-400); RBC Distribution Width 14.9 % (11.5-14.5); Red Blood Cell (RBC) Count 2.87 mill/uL (4.20-5.40); White Blood Cell (WBC) Count 6.8 thou/uL (4.8-10.8)
[2020-12-16 20:44] LABS: ALT (SGPT) Less than 6 U/L (8-55); AST (SGOT) 8 U/L (5-34); Albumin 3.1 g/dL (3.5-5.0); Alkaline Phosphatase 55 U/L (40-110); Anion Gap 16 mmol/L (10-20); BUN (Urea Nitrogen) 25 mg/dL (7.0-18.7); Bilirubin, Total 0.3 mg/dL (0.2-1.2); Calc. Creatinine Clearance 0 mL/min (70-130); Calcium 8.5 mg/dL (7.8-10.44); Carbon Dioxide 24 mmol/L (22-29); Chloride 104 mmol/L (98-107); Globulin 2.9 g/dL (2.4-3.5); Glucose 109 mg/dL (70-105); Potassium 4.9 mmol/L (3.5-5.1); Sodium 139 mmol/L (136-145)
== END 2020-12-16 23:45 | disposition short-term general hospital (02) ==
LOC: NAV ERS 18:28
DX: G89.18 Other acute postprocedural pain (principal); R10.9 Unspecified abdominal pain; R11.2 Nausea with vomiting, unspecified; E11.9 Type 2 diabetes mellitus without complications; M79.7 Fibromyalgia; E11.43 Type 2 diabetes mellitus with diabetic autonomic (poly)neuropathy; K31.84 Gastroparesis; N19 Unspecified kidney failure; Z99.2 Dependence on renal dialysis; Z79.899 Other long term (current) drug therapy; Z94.0 Kidney transplant status
CPT/HCPCS: 71046; 74176; 80053; 84484; 85025; 87081; 87430; 93005; 96372; J2270; Q0162

== ENCOUNTER 2020-12-22 23:32 | Emergency (ER) | payer MEDICARE, MEDICAID ==
[2020-12-22] MEDS ORDERED: Ondansetron ODT 4 MG TAB ONE (23:54)
[2020-12-23 00:11] LABS: #Lymphocytes 1.6 thou/uL (1.20-3.40); #Monocytes 0.4 thou/uL (0.11-0.59); #Neutrophils 4.8 thou/uL (1.40-6.50); %Basophils 0.7 % (0.0-1.0); %Lymphocytes 23.7 % (21.0-51.0); %Monocytes 5.9 % (0.0-10.0); %Neutrophils 69.8 % (42.0-75.0); Mean Corpuscular HGB CONC 32.8 g/dL (32.0-36.0); Mean Corpuscular Volume 88.2 fL (78.0-98.0); Mean Platelet Volume 6.9 fL (7.4-10.4); Platelet Count 297 thou/uL (130-400); RBC Distribution Width 14.5 % (11.5-14.5); Red Blood Cell (RBC) Count 3.11 mill/uL (4.20-5.40); White Blood Cell (WBC) Count 6.9 thou/uL (4.8-10.8)
[2020-12-23] MEDS ORDERED: diphenhydrAMINE 25 MG CAP ONE (00:11)
[2020-12-23] MEDS ORDERED: Ondansetron PF 4 MG/2 ML Vial ONE (00:11)
[2020-12-23] MEDS ORDERED: Metoclopramide HCl 10 MG/2 ML VIAL ONE ×2 (00:11→01:20)
[2020-12-23] MEDS ORDERED: Sodium Chloride 0.9% 100 ML ONE ×3 (00:11→01:20)
[2020-12-23] MEDS ORDERED: diphenhydrAMINE 50 MG/ML VIAL ONE (00:12)
[2020-12-23 00:29] LABS: ALT (SGPT) Less than 6 U/L (8-55); AST (SGOT) 10 U/L (5-34); Albumin 3.6 g/dL (3.5-5.0); Alkaline Phosphatase 77 U/L (40-110); Anion Gap 19 mmol/L (10-20); BUN (Urea Nitrogen) 8 mg/dL (7.0-18.7); Bilirubin, Total 0.6 mg/dL (0.2-1.2); Calc. Creatinine Clearance 0 mL/min (70-130); Calcium 9.4 mg/dL (7.8-10.44); Carbon Dioxide 23 mmol/L (22-29); Chloride 99 mmol/L (98-107); Globulin 3.9 g/dL (2.4-3.5); Glucose 129 mg/dL (70-105); Potassium 4.5 mmol/L (3.5-5.1); Protein, Total 7.5 g/dL (6.0-8.3); Sodium 136 mmol/L (136-145)
[2020-12-23 00:31] LABS: Lipase 3 U/L (8-78)
== END 2020-12-23 02:09 | disposition home or self-care (01) ==
LOC: NAV ERS 23:32
DX: R11.2 Nausea with vomiting, unspecified (principal); E11.43 Type 2 diabetes mellitus with diabetic autonomic (poly)neuropathy; K31.84 Gastroparesis; Z79.899 Other long term (current) drug therapy
CPT/HCPCS: 80053; 83605; 83690; 85025; 96365; 96366; 96375; J1200; J2405; J2765; Q0162; Q0163

== ENCOUNTER 2020-12-25 17:01 | Emergency (ER) | payer MEDICARE, MEDICAID ==
[2020-12-25] MEDS ORDERED: Ondansetron PF 4 MG/2 ML Vial ONE (17:19)
[2020-12-25] MEDS ORDERED: Sodium Chloride 0.9% 500 ML ONE (17:31)
[2020-12-25] MEDS ORDERED: Promethazine HCl 25 MG/ML VIAL ONE ×2 (17:31→20:44)
[2020-12-25] MEDS ORDERED: diphenhydrAMINE 50 MG/ML VIAL ONE (17:31)
[2020-12-25] MEDS ORDERED: Haloperidol Lactate 5 MG/ML VIAL ONE (17:33)
[2020-12-25 17:35] LABS: #Lymphocytes 1.4 thou/uL (1.20-3.40); #Monocytes 0.5 thou/uL (0.11-0.59); #Neutrophils 4.8 thou/uL (1.40-6.50); %Basophils 0.6 % (0.0-1.0); %Lymphocytes 20.6 % (21.0-51.0); %Monocytes 7.8 % (0.0-10.0); %Neutrophils 71.1 % (42.0-75.0); Mean Corpuscular HGB CONC 31.1 g/dL (32.0-36.0); Mean Corpuscular Hemoglobin 27.9 pg (27.0-31.0); Mean Corpuscular Volume 89.5 fL (78.0-98.0); Mean Platelet Volume 6.7 fL (7.4-10.4); Platelet Count 319 thou/uL (130-400); Red Blood Cell (RBC) Count 2.89 mill/uL (4.20-5.40); White Blood Cell (WBC) Count 6.7 thou/uL (4.8-10.8)
[2020-12-25 17:51] LABS: ALT (SGPT) Less than 6 U/L (8-55); AST (SGOT) 9 U/L (5-34); Albumin 3.7 g/dL (3.5-5.0); Alkaline Phosphatase 70 U/L (40-110); Anion Gap 23 mmol/L (10-20); BUN (Urea Nitrogen) 30 mg/dL (7.0-18.7); Bilirubin, Total 0.7 mg/dL (0.2-1.2); Calc. Creatinine Clearance 0 mL/min (70-130); Calcium 8.4 mg/dL (7.8-10.44); Carbon Dioxide 23 mmol/L (22-29); Chloride 97 mmol/L (98-107); Globulin 3.8 g/dL (2.4-3.5); Glucose 109 mg/dL (70-105); Lipase 4 U/L (8-78); Potassium 4.2 mmol/L (3.5-5.1); Protein, Total 7.5 g/dL (6.0-8.3); Sodium 139 mmol/L (136-145)
[2020-12-25] MEDS ORDERED: Morphine 4 MG/ML VIAL ONE (17:55)
[2020-12-25 18:06] LABS: BHCG - Serum Negative (NEGATIVE); Pregs Control Bar Appear? YES (CONTROL BAR)
[2020-12-25] MEDS ORDERED: Lorazepam 2 MG/ML VIAL ONE (18:07)
[2020-12-25] MEDS ORDERED: Piperacillin/Tazobactam 3.375 GM VIAL ONE (19:43)
[2020-12-25] MEDS ORDERED: Sodium Chloride 0.9% 100 ML ONE (19:43)
== END 2020-12-25 21:28 | disposition short-term general hospital (02) ==
LOC: NAV ERS 17:01
DX: N18.9 Chronic kidney disease, unspecified (principal); Z99.2 Dependence on renal dialysis; J18.9 Pneumonia, unspecified organism; E11.22 Type 2 diabetes mellitus with diabetic chronic kidney disease; R94.31 Abnormal electrocardiogram [ECG] [EKG]; E87.70 Fluid overload, unspecified; G43.909 Migraine, unspecified, not intractable, without status migrainosus; E11.43 Type 2 diabetes mellitus with diabetic autonomic (poly)neuropathy; K31.84 Gastroparesis; Z79.899 Other long term (current) drug therapy
CPT/HCPCS: 36416; 71045; 74176; 80053; 82010; 83605; 83690; 84484; 84703; 85025; 87040; 93005; 94760; 96365; 96367; 96372; 96375; 96376; 36415-59; J1200; J1630; J2060; J2270; J2405; J2543; J2550; J3490; J7030

== ENCOUNTER 2021-01-18 17:27 | Emergency (ER) | payer MEDICARE, MEDICAID ==
[2021-01-18] MEDS ORDERED: diphenhydrAMINE 50 MG/ML VIAL ONE (17:57)
[2021-01-18] MEDS ORDERED: Metoclopramide HCl 10 MG/2 ML VIAL ONE (17:57)
[2021-01-18] MEDS ORDERED: Sodium Chloride 0.9% 0 ML ONE (17:57)
[2021-01-18 18:27] LABS: #Basophils 0.1 thou/uL (0.0-0.2); #Eosinphils 0.1 thou/uL (0.0-0.7); #Lymphocytes 2.8 thou/uL (1.20-3.40); #Monocytes 0.5 thou/uL (0.11-0.59); #Neutrophils 3.3 thou/uL (1.40-6.50); %Basophils 1.2 % (0.0-1.0); %Eosinophils 1.3 % (0.0-10.0); %Lymphocytes 41.1 % (21.0-51.0); %Monocytes 6.8 % (0.0-10.0); %Neutrophils 49.6 % (42.0-75.0); Hemoglobin 9.3 g/dL (12.0-16.0); Mean Corpuscular HGB CONC 30.2 g/dL (32.0-36.0); Mean Corpuscular Hemoglobin 27.9 pg (27.0-31.0); Mean Corpuscular Volume 92.4 fL (78.0-98.0); Mean Platelet Volume 7.1 fL (7.4-10.4); Platelet Count 222 thou/uL (130-400); RBC Distribution Width 16.5 % (11.5-14.5); Red Blood Cell (RBC) Count 3.32 mill/uL (4.20-5.40); White Blood Cell (WBC) Count 6.7 thou/uL (4.8-10.8)
[2021-01-18 18:39] LABS: ALT (SGPT) 8 U/L (8-55); AST (SGOT) 12 U/L (5-34); Alkaline Phosphatase 66 U/L (40-110); Anion Gap 17 mmol/L (10-20); BUN (Urea Nitrogen) 8 mg/dL (7.0-18.7); Bilirubin, Total 0.5 mg/dL (0.2-1.2); Calc. Creatinine Clearance 0 mL/min (70-130); Calcium 8.7 mg/dL (7.8-10.44); Carbon Dioxide 23 mmol/L (22-29); Chloride 99 mmol/L (98-107); Globulin 3.1 g/dL (2.4-3.5); Glucose 96 mg/dL (70-105); Protein, Total 6.1 g/dL (6.0-8.3); Sodium 135 mmol/L (136-145)
[2021-01-18 18:51] LABS: Lipase 3 U/L (8-78)
[2021-01-18] MEDS ORDERED: Metoclopramide HCl 10 MG TAB ONE (19:09)
== END 2021-01-18 19:55 | disposition home or self-care (01) ==
LOC: NAV ERS 17:27
DX: K31.84 Gastroparesis (principal); E11.9 Type 2 diabetes mellitus without complications; M79.7 Fibromyalgia; Z99.2 Dependence on renal dialysis; Z79.4 Long term (current) use of insulin; Z79.899 Other long term (current) drug therapy
CPT/HCPCS: 36415; 80053; 83690; 85025; 99284; J1200; J2765

== ENCOUNTER 2021-03-25 12:43 | Emergency (ER) | payer MEDICARE, MEDICAID ==
[2021-03-25] MEDS ORDERED: Metoprolol Tartrate 5 MG/5 ML VIAL ONE ×2 (13:12→13:58)
[2021-03-25] MEDS ORDERED: Sodium Chloride 0.9% 500 ML ONE (13:12)
[2021-03-25] MEDS ORDERED: diphenhydrAMINE 50 MG/ML VIAL ONE (13:12)
[2021-03-25] MEDS ORDERED: Metoclopramide HCl 10 MG/2 ML VIAL ONE ×2 (13:12→16:21)
[2021-03-25 13:23] LABS: #Basophils 0.1 thou/uL (0.0-0.2); #Lymphocytes 2.3 thou/uL (1.20-3.40); #Monocytes 0.5 thou/uL (0.11-0.59); #Neutrophils 4.4 thou/uL (1.40-6.50); %Basophils 1.2 % (0.0-1.0); %Eosinophils 0.1 % (0.0-10.0); %Monocytes 7.4 % (0.0-10.0); %Neutrophils 60.4 % (42.0-75.0); Hemoglobin 11.9 g/dL (12.0-16.0); Mean Corpuscular HGB CONC 31.6 g/dL (32.0-36.0); Mean Corpuscular Hemoglobin 28.9 pg (27.0-31.0); Mean Corpuscular Volume 91.4 fL (78.0-98.0); Mean Platelet Volume 7.2 fL (7.4-10.4); Platelet Count 288 thou/uL (130-400); RBC Distribution Width 14.4 % (11.5-14.5); Red Blood Cell (RBC) Count 4.12 mill/uL (4.20-5.40); White Blood Cell (WBC) Count 7.3 thou/uL (4.8-10.8)
[2021-03-25 13:34] LABS: ALT (SGPT) 7 U/L (8-55); AST (SGOT) 8 U/L (5-34); Albumin 3.5 g/dL (3.5-5.0); Alkaline Phosphatase 72 U/L (40-110); Anion Gap 23 mmol/L (10-20); BUN (Urea Nitrogen) 65 mg/dL (7.0-18.7); Bilirubin, Total 0.5 mg/dL (0.2-1.2); Calc. Creatinine Clearance 0 mL/min (70-130); Calcium 8.5 mg/dL (7.8-10.44); Carbon Dioxide 16 mmol/L (22-29); Chloride 100 mmol/L (98-107); Glucose 220 mg/dL (70-105); Lipase 9 U/L (8-78); Potassium 5.9 mmol/L (3.5-5.1); Protein, Total 6.5 g/dL (6.0-8.3); Sodium 133 mmol/L (136-145)
[2021-03-25] MEDS ORDERED: Morphine 4 MG/ML VIAL ONE ×2 (13:58→16:40)
[2021-03-25 14:07] LABS: Base Excess-Venous -5.3 mmol/L (-2.0 to 3.0); Calcium, Ionized 0.96 mmol/L (1.15-1.33); Chloride 102 mmol/L (98-107); Hemoglobin - Calc 12.4 g/dL (12.0-16.0); Potassium 6.3 mmol/L (3.5-5.1); Sodium 128 mmol/L (138-145); T. Carbon Dioxide 17.7 mmol/L (22.0-28.0)
[2021-03-25 14:09] LABS: CO2 Tension (PvCO2) 23.9 mmHg (42.0-51.0)
[2021-03-25] MEDS ORDERED: hydrALAZINE 20 MG/ML VIAL ONE ×2 (14:40→20:38)
[2021-03-25] MEDS ORDERED: Insulin Regular 300 UNITS/3 ML VIAL ONE (15:25)
[2021-03-25] MEDS ORDERED: Dextrose 50% Abboject 50 ML SYRINGE ONE (15:25)
[2021-03-25] MEDS ORDERED: Ondansetron PF 4 MG/2 ML Vial ONE ×2 (18:53→20:38)
== END 2021-03-25 22:09 | disposition short-term general hospital (02) ==
LOC: NAV ERS 12:43
DX: E87.5 Hyperkalemia (principal); E11.43 Type 2 diabetes mellitus with diabetic autonomic (poly)neuropathy; K31.84 Gastroparesis; G43.909 Migraine, unspecified, not intractable, without status migrainosus; Z79.899 Other long term (current) drug therapy
CPT/HCPCS: 71045; 80053; 82010; 82330; 82803; 83605; 83690; 85025; 93005; 96374; 96375; 96376; J0360; J1200; J1815; J2270; J2405; J2765; J7030

== ENCOUNTER 2021-04-12 12:19 | Emergency (ER) | payer MEDICARE, MEDICAID ==
[2021-04-12] MEDS ORDERED: Ondansetron ODT 4 MG TAB ONE (12:46)
[2021-04-12] MEDS ORDERED: Insulin Regular 300 UNITS/3 ML VIAL ONE (12:50)
[2021-04-12 12:57] LABS: #Basophils 0.1 thou/uL (0.0-0.2); #Lymphocytes 2.9 thou/uL (1.20-3.40); #Monocytes 0.4 thou/uL (0.11-0.59); #Neutrophils 3.3 thou/uL (1.40-6.50); %Basophils 1.1 % (0.0-1.0); %Eosinophils 0.2 % (0.0-10.0); %Lymphocytes 43.5 % (21.0-51.0); %Monocytes 5.6 % (0.0-10.0); %Neutrophils 49.5 % (42.0-75.0); Hemoglobin 9.7 g/dL (12.0-16.0); Mean Corpuscular HGB CONC 30.3 g/dL (32.0-36.0); Mean Corpuscular Hemoglobin 27.7 pg (27.0-31.0); Mean Corpuscular Volume 91.4 fL (78.0-98.0); Mean Platelet Volume 6.7 fL (7.4-10.4); Platelet Count 352 thou/uL (130-400); RBC Distribution Width 14.5 % (11.5-14.5); Red Blood Cell (RBC) Count 3.51 mill/uL (4.20-5.40); White Blood Cell (WBC) Count 6.7 thou/uL (4.8-10.8)
[2021-04-12 13:05] LABS: Bicarbonate (HCO3v) 26.2 mmol/L (22.0-28.0); CO2 Tension (PvCO2) 38.6 mmHg (42.0-51.0); Calcium, Ionized 0.99 mmol/L (1.15-1.33); Chloride 95 mmol/L (98-107); Hemoglobin - Calc 10.2 g/dL (12.0-16.0); Potassium 4.2 mmol/L (3.5-5.1); Sodium 132 mmol/L (138-145); T. Carbon Dioxide 27.4 mmol/L (22.0-28.0); vO2 Saturation-calc 98.2 % (60.0-85.0)
[2021-04-12 13:10] LABS: ALT (SGPT) 6 U/L (8-55); AST (SGOT) 6 U/L (5-34); Albumin 3.4 g/dL (3.5-5.0); Alkaline Phosphatase 82 U/L (40-110); Anion Gap 15 mmol/L (10-20); BUN (Urea Nitrogen) 10 mg/dL (7.0-18.7); Bilirubin, Total 0.3 mg/dL (0.2-1.2); Calc. Creatinine Clearance 0 mL/min (70-130); Calcium 8.5 mg/dL (7.8-10.44); Carbon Dioxide 26 mmol/L (22-29); Chloride 96 mmol/L (98-107); Globulin 3.7 g/dL (2.4-3.5); Glucose 282 mg/dL (70-105); Potassium 4.3 mmol/L (3.5-5.1); Protein, Total 7.1 g/dL (6.0-8.3); Sodium 133 mmol/L (136-145)
== END 2021-04-12 13:50 | disposition home or self-care (01) ==
LOC: NAV ERS 12:19
DX: E11.65 Type 2 diabetes mellitus with hyperglycemia (principal); G43.909 Migraine, unspecified, not intractable, without status migrainosus; Z79.899 Other long term (current) drug therapy
CPT/HCPCS: 36416; 80053; 82010; 82330; 82803; 85025; 99284; 36415-59; J1815; Q0162

== ENCOUNTER 2021-05-10 10:16 | Emergency (ER) | payer MEDICARE, MEDICAID | END 2021-05-10 11:16 | disposition home or self-care (01) | LOC: NAV ERS 10:16 | DX: M54.5 Low back pain (principal); R10.31 Right lower quadrant pain; R10.32 Left lower quadrant pain; M53.3 Sacrococcygeal disorders, not elsewhere classified; E11.43 Type 2 diabetes mellitus with diabetic autonomic (poly)neuropathy; K31.84 Gastroparesis; E11.22 Type 2 diabetes mellitus with diabetic chronic kidney disease; N18.6 End stage renal disease; Z79.4 Long term (current) use of insulin; Z79.899 Other long term (current) drug therapy; Z99.2 Dependence on renal dialysis | CPT/HCPCS: 72100 ==

== ENCOUNTER 2021-06-24 20:01 | Emergency (ER) | payer MEDICARE, MEDICAID ==
[2021-06-24] MEDS ORDERED: Cyclobenzaprine 10 MG TAB ONE (21:53)
== END 2021-06-24 21:55 | disposition home or self-care (01) ==
LOC: NAV ERS 20:01
DX: M54.5 Low back pain (principal); E11.9 Type 2 diabetes mellitus without complications; I10 Essential (primary) hypertension; G43.909 Migraine, unspecified, not intractable, without status migrainosus
CPT/HCPCS: 99283

== ENCOUNTER 2021-09-30 08:23 | Emergency (ER) | payer MEDICARE, MEDICAID ==
[2021-09-30] MEDS ORDERED: Ondansetron ODT 4 MG TAB ONE ×2 (09:16→11:33)
[2021-09-30 10:31] LABS: #Lymphocytes 1.3 thou/uL (1.20-3.40); #Monocytes 0.3 thou/uL (0.11-0.59); #Neutrophils 4.8 thou/uL (1.40-6.50); %Basophils 0.6 % (0.0-1.0); %Eosinophils 0.3 % (0.0-10.0); %Lymphocytes 20.3 % (21.0-51.0); %Monocytes 4.5 % (0.0-10.0); %Neutrophils 74.4 % (42.0-75.0); Hemoglobin 8.3 g/dL (12.0-16.0); Mean Corpuscular HGB CONC 31.1 g/dL (32.0-36.0); Mean Corpuscular Hemoglobin 29.5 pg (27.0-31.0); Mean Corpuscular Volume 94.8 fL (78.0-98.0); Platelet Count 162 thou/uL (130-400); RBC Distribution Width 17.7 % (11.5-14.5); White Blood Cell (WBC) Count 6.5 thou/uL (4.8-10.8)
[2021-09-30] MEDS ORDERED: diphenhydrAMINE 50 MG/ML VIAL ONE (10:33)
[2021-09-30] MEDS ORDERED: Metoclopramide HCl 10 MG/2 ML VIAL ONE (10:33)
[2021-09-30 10:46] LABS: AST (SGOT) 30 U/L (5-34); Alkaline Phosphatase 70 U/L (40-110); Anion Gap 17 mmol/L (10-20); BUN (Urea Nitrogen) 46 mg/dL (7.0-18.7); Bilirubin, Total 0.6 mg/dL (0.2-1.2); Calc. Creatinine Clearance 0 mL/min (70-130); Calcium 8.9 mg/dL (7.8-10.44); Carbon Dioxide 23 mmol/L (22-29); Chloride 98 mmol/L (98-107); Globulin 4.1 g/dL (2.4-3.5); Glucose 261 mg/dL (70-105); Lipase 11 U/L (8-78); Potassium 5.3 mmol/L (3.5-5.1); Protein, Total 7.5 g/dL (6.0-8.3); Sodium 133 mmol/L (136-145)
[2021-09-30 10:57] LABS: ALT (SGPT) 27 U/L (8-55); Albumin 3.4 g/dL (3.5-5.0)
[2021-09-30 11:52] LABS: SARS-CoV-2 NAA Rapid Test Not Detected (NotDetected)
[2021-09-30] MEDS ORDERED: Carvedilol 25 MG TAB ONE (12:30)
[2021-09-30] MEDS ORDERED: NIFEdipine XL 30 MG TAB ONE (12:31)
[2021-09-30] MEDS ORDERED: Morphine 4 MG/ML VIAL ONE ×2 (14:17→18:49)
== END 2021-09-30 19:39 | disposition short-term general hospital (02) ==
LOC: NAV ERS 08:23
DX: E87.5 Hyperkalemia (principal); E87.70 Fluid overload, unspecified; R11.2 Nausea with vomiting, unspecified; R05.9 Cough, unspecified; Z99.2 Dependence on renal dialysis; Z20.822 Contact with and (suspected) exposure to COVID-19; I10 Essential (primary) hypertension; E11.43 Type 2 diabetes mellitus with diabetic autonomic (poly)neuropathy; G43.909 Migraine, unspecified, not intractable, without status migrainosus; Z79.4 Long term (current) use of insulin; Z79.52 Long term (current) use of systemic steroids; Z79.899 Other long term (current) drug therapy
CPT/HCPCS: 71045; 80053; 83690; 83880; 84484; 85025; 93005; 94760; 96372; 96374; 96376; 36415-59; J1200; J2270; J2765; Q0162; U0002

== ENCOUNTER 2021-10-10 15:47 | Emergency (ER) | payer MEDICARE, MEDICAID ==
[2021-10-10 17:35] LABS: SARS-CoV-2 NAA Rapid Test Not Detected (NotDetected)
[2021-10-10 18:39] LABS: #Basophils 0.1 thou/uL (0.0-0.2); #Lymphocytes 2.1 thou/uL (1.20-3.40); #Monocytes 0.3 thou/uL (0.11-0.59); #Neutrophils 3.1 thou/uL (1.40-6.50); %Basophils 1.2 % (0.0-1.0); %Eosinophils 0.3 % (0.0-10.0); %Lymphocytes 38.5 % (21.0-51.0); %Monocytes 4.5 % (0.0-10.0); %Neutrophils 55.5 % (42.0-75.0); Hemoglobin 9.3 g/dL (12.0-16.0); Mean Corpuscular HGB CONC 30.2 g/dL (32.0-36.0); Mean Corpuscular Hemoglobin 29.2 pg (27.0-31.0); Mean Corpuscular Volume 96.6 fL (78.0-98.0); Mean Platelet Volume 6.8 fL (7.4-10.4); Platelet Count 128 thou/uL (130-400); RBC Distribution Width 18.9 % (11.5-14.5); White Blood Cell (WBC) Count 5.5 thou/uL (4.8-10.8)
[2021-10-10 18:42] LABS: ALT (SGPT) 21 U/L (8-55); AST (SGOT) 19 U/L (5-34); Albumin 3.7 g/dL (3.5-5.0); Alkaline Phosphatase 68 U/L (40-110); Anion Gap 24 mmol/L (10-20); Anisocytosis SLIGHT = 6-15 cells (100X) (0-5/hpf); BUN (Urea Nitrogen) 36 mg/dL (7.0-18.7); Bilirubin, Total 0.3 mg/dL (0.2-1.2); Calc. Creatinine Clearance 0 mL/min (70-130); Calcium 9.1 mg/dL (7.8-10.44); Carbon Dioxide 17 mmol/L (22-29); Chloride 94 mmol/L (98-107); Globulin 4.1 g/dL (2.4-3.5); Glucose 132 mg/dL (70-105); Ovalocytes SLIGHT = 2-5 cells (100X) (0-1/hpf); Potassium 5.9 mmol/L (3.5-5.1); Protein, Total 7.8 g/dL (6.0-8.3); Sodium 129 mmol/L (136-145)
[2021-10-10 18:43] LABS: Platelet Morphology Comment Appears Adequate
[2021-10-10] MEDS ORDERED: Dextrose 50% Abboject 50 ML SYRINGE ONE (19:02)
[2021-10-10] MEDS ORDERED: Calcium Chloride 1 GM/10 ML Abboject SYRINGE ONE (19:02)
[2021-10-10] MEDS ORDERED: Insulin Regular 300 UNITS/3 ML VIAL ONE (19:02)
[2021-10-10] MEDS ORDERED: Ondansetron PF 4 MG/2 ML Vial ONE (19:17)
== END 2021-10-10 20:50 | disposition short-term general hospital (02) ==
LOC: NAV ERS 15:47
DX: I12.0 Hypertensive chronic kidney disease with stage 5 chronic kidney disease or end stage renal disease (principal); N18.6 End stage renal disease; Z99.2 Dependence on renal dialysis; E87.5 Hyperkalemia; B34.9 Viral infection, unspecified; Z20.822 Contact with and (suspected) exposure to COVID-19; E11.22 Type 2 diabetes mellitus with diabetic chronic kidney disease; G43.909 Migraine, unspecified, not intractable, without status migrainosus; Z79.4 Long term (current) use of insulin; Z79.899 Other long term (current) drug therapy
CPT/HCPCS: 0240U; 71045; 80053; 84484; 85025; 96374; 96375; J1815; J2405

== ENCOUNTER 2021-10-22 05:38 | Emergency (ER) | payer MEDICARE, MEDICAID ==
[2021-10-22] MEDS ORDERED: clonazePAM 0.5 MG TAB ONE (06:35)
[2021-10-22 07:36] LABS: #Lymphocytes 0.8 thou/uL (1.20-3.40); #Monocytes 0.2 thou/uL (0.11-0.59); %Basophils 0.7 % (0.0-1.0); %Eosinophils 0.1 % (0.0-10.0); %Lymphocytes 39.6 % (21.0-51.0); %Monocytes 8.8 % (0.0-10.0); %Neutrophils 50.8 % (42.0-75.0); Hemoglobin 8.3 g/dL (12.0-16.0); Mean Corpuscular HGB CONC 31.5 g/dL (32.0-36.0); Mean Corpuscular Hemoglobin 29.5 pg (27.0-31.0); Mean Corpuscular Volume 93.6 fL (78.0-98.0); Mean Platelet Volume 9.2 fL (7.4-10.4); Platelet Count 116 thou/uL (130-400); RBC Distribution Width 16.5 % (11.5-14.5); Red Blood Cell (RBC) Count 2.81 mill/uL (4.20-5.40)
[2021-10-22 07:38] LABS: ALT (SGPT) 11 U/L (8-55); AST (SGOT) 22 U/L (5-34); Albumin 3.1 g/dL (3.5-5.0); Alkaline Phosphatase 57 U/L (40-110); Anion Gap 21 mmol/L (10-20); BUN (Urea Nitrogen) 40 mg/dL (7.0-18.7); Bilirubin, Total 0.4 mg/dL (0.2-1.2); Calc. Creatinine Clearance 0 mL/min (70-130); Calcium 8.2 mg/dL (7.8-10.44); Carbon Dioxide 23 mmol/L (22-29); Chloride 91 mmol/L (98-107); Globulin 4.1 g/dL (2.4-3.5); Glucose 348 mg/dL (70-105); Potassium 4.4 mmol/L (3.5-5.1); Protein, Total 7.2 g/dL (6.0-8.3); Sodium 131 mmol/L (136-145)
[2021-10-22 07:47] LABS: SARS-CoV-2 NAA Rapid Test DETECTED (NotDetected)
[2021-10-22 09:07] LABS: CKMB 0.8 ng/mL (0-6.6)
[2021-10-22] MEDS ORDERED: Acetaminophen 500 MG TAB ONE ×2 (09:32)
[2021-10-22] MEDS ORDERED: traMADol HCl 50 MG TAB ONE ×2 (11:55→22:30)
[2021-10-22] MEDS ORDERED: Metoclopramide HCl 10 MG/2 ML VIAL ONE (15:15)
[2021-10-22] MEDS ORDERED: Lantus 1000 UNITS/10 ML VIAL SC SCH (23:00)
[2021-10-23] MEDS ORDERED: Benzonatate 100 MG CAP ONE (01:59)
[2021-10-23] MEDS ORDERED: Metoclopramide HCl 10 MG/2 ML VIAL ONE ×2 (03:50→07:44)
[2021-10-23] MEDS ORDERED: Sodium Chloride 0.9% 100 ML ONE ×2 (03:50→07:44)
[2021-10-23] MEDS ORDERED: Insulin Regular 300 UNITS/3 ML VIAL ONE (07:42)
[2021-10-23] MEDS ORDERED: Dexamethasone 4 mg/ml Vial ONE (09:16)
[2021-10-23 10:45] LABS: Anion Gap 18 mmol/L (10-20); BUN (Urea Nitrogen) 49 mg/dL (7.0-18.7); Calc. Creatinine Clearance 0 mL/min (70-130); Calcium 7.7 mg/dL (7.8-10.44); Carbon Dioxide 23 mmol/L (22-29); Chloride 95 mmol/L (98-107); Glucose 186 mg/dL (70-105); Potassium 4.4 mmol/L (3.5-5.1); Sodium 132 mmol/L (136-145)
[2021-10-23 10:48] LABS: Troponin I 0.058 ng/mL (< 0.028)
== END 2021-10-23 17:20 | disposition home or self-care (01) ==
LOC: NAV ERS 05:38
DX: U07.1 COVID-19 (principal); R09.02 Hypoxemia; J12.9 Viral pneumonia, unspecified; E11.9 Type 2 diabetes mellitus without complications; I10 Essential (primary) hypertension; G43.909 Migraine, unspecified, not intractable, without status migrainosus; Z79.52 Long term (current) use of systemic steroids; Z79.4 Long term (current) use of insulin; Z79.899 Other long term (current) drug therapy
CPT/HCPCS: 0240U; 36416; 71045; 80048; 80053; 82553; 83605; 83880; 84484; 85025; 85379; 96365; 96375; 96376; J1100; J1815; J2765; U0002

== ENCOUNTER 2022-01-29 18:07 | Emergency (ER) | payer MEDICARE, MEDICAID ==
[2022-01-29] MEDS ORDERED: Sodium Chloride 0.9% 1,000 ML ONE (18:41)
[2022-01-29] MEDS ORDERED: Metoclopramide HCl 10 MG/2 ML VIAL ONE (18:41)
[2022-01-29 19:33] LABS: Potassium 7.1 mmol/L (3.5-5.1)
[2022-01-29] MEDS ORDERED: NIFEdipine XL 30 MG TAB ONE (19:34)
[2022-01-29 19:35] LABS: Manual Diff?? NO; Mean Corpuscular HGB CONC 29.7 g/dL (32.0-36.0); Mean Corpuscular Hemoglobin 29.7 pg (27.0-31.0); Mean Platelet Volume 8.1 fL (7.4-10.4); Platelet Count 165 thou/uL (130-400); RBC Distribution Width 17.8 % (11.5-14.5); Red Blood Cell (RBC) Count 4.04 mill/uL (4.20-5.40); White Blood Cell (WBC) Count 5.3 thou/uL (4.8-10.8)
[2022-01-29 19:36] LABS: #Basophils 0.1 thou/uL (0.0-0.2); #Lymphocytes 1.6 thou/uL (1.20-3.40); #Monocytes 0.4 thou/uL (0.11-0.59); #Neutrophils 3.2 thou/uL (1.40-6.50); %Basophils 1.1 % (0.0-1.0); %Eosinophils 0.1 % (0.0-10.0); %Lymphocytes 30.8 % (21.0-51.0); %Monocytes 6.8 % (0.0-10.0); %Neutrophils 61.3 % (42.0-75.0)
[2022-01-29 19:39] LABS: ALT (SGPT) 24 U/L (8-55); AST (SGOT) 29 U/L (5-34); Albumin 3.7 g/dL (3.5-5.0); Alkaline Phosphatase 88 U/L (40-110); Anion Gap 25 mmol/L (10-20); BUN (Urea Nitrogen) 51 mg/dL (7.0-18.7); Bilirubin, Total 0.5 mg/dL (0.2-1.2); Calc. Creatinine Clearance 0 mL/min (70-130); Calcium 8.4 mg/dL (7.8-10.44); Carbon Dioxide 20 mmol/L (22-29); Chloride 94 mmol/L (98-107); Globulin 4.2 g/dL (2.4-3.5); Glucose 377 mg/dL (70-105); Lipase 33 U/L (8-78); Protein, Total 7.9 g/dL (6.0-8.3); Sodium 132 mmol/L (136-145)
[2022-01-29] MEDS ORDERED: Insulin Regular 300 UNITS/3 ML VIAL ONE (19:43)
[2022-01-29] MEDS ORDERED: Calcium Chloride 1 GM/10 ML Abboject SYRINGE ONE (19:44)
[2022-01-29] MEDS ORDERED: Ondansetron PF 4 MG/2 ML Vial ONE (19:55)
[2022-01-29] MEDS ORDERED: Carvedilol 25 MG TAB ONE (20:21)
[2022-01-29 20:22] LABS: Base Excess-Venous 5.2 mmol/L (-2.0 to 3.0); Bicarbonate (HCO3v) 29.4 mmol/L (22.0-28.0); CO2 Tension (PvCO2) 40.9 mmHg (42.0-51.0); Chloride 91 mmol/L (98-107); Hemoglobin - Calc 13.5 g/dL (12.0-16.0); Sodium 130 mmol/L (138-145)
[2022-01-29 20:23] LABS: Calcium, Ionized 1.09 mmol/L (1.15-1.33); T. Carbon Dioxide 30.7 mmol/L (22.0-28.0)
[2022-01-29 20:24] LABS: Potassium 9.4 mmol/L (3.5-5.1)
[2022-01-29 20:40] LABS: SARS-CoV-2 NAA Rapid Test Not Detected (NotDetected)
[2022-01-29] MEDS ORDERED: Albuterol Sulfate 2.5 mg/0.5 ml Neb ONE (21:02)
[2022-01-29] MEDS ORDERED: Sodium Bicarb 50 MEQ/50 ML Abboject 8.4% SYRINGE ONE (21:02)
== END 2022-01-29 21:40 | disposition short-term general hospital (02) ==
LOC: NAV ERS 18:07
DX: E87.5 Hyperkalemia (principal); I12.9 Hypertensive chronic kidney disease with stage 1 through stage 4 chronic kidney disease, or unspecified chronic kidney disease; E11.22 Type 2 diabetes mellitus with diabetic chronic kidney disease; N18.9 Chronic kidney disease, unspecified; E11.43 Type 2 diabetes mellitus with diabetic autonomic (poly)neuropathy; K31.84 Gastroparesis; E11.65 Type 2 diabetes mellitus with hyperglycemia; Z99.2 Dependence on renal dialysis; Z20.822 Contact with and (suspected) exposure to COVID-19; Z79.4 Long term (current) use of insulin; Z79.899 Other long term (current) drug therapy
CPT/HCPCS: 36416; 80053; 82330; 82803; 83690; 85025; 93005; 96374; 96375; 96376; J1815; J2405; J2765; J7050; J7611; U0002

== ENCOUNTER 2022-03-24 02:53 | Emergency (ER) | payer MEDICARE, MEDICAID ==
[2022-03-24] MEDS ORDERED: Insulin Regular 300 UNITS/3 ML VIAL ONE (03:45)
[2022-03-24] MEDS ORDERED: Sodium Chloride 0.9% 500 ML ONE (03:45)
[2022-03-24 04:00] LABS: CO2 Tension (PvCO2) 32.8 mmHg (42.0-51.0)
[2022-03-24] MEDS ORDERED: Acetaminophen 325 MG TAB ONE (04:00)
[2022-03-24] MEDS ORDERED: Metoclopramide HCl 10 MG/2 ML VIAL ONE (04:00)
[2022-03-24 04:01] LABS: Base Excess-Venous -3.5 mmol/L (-2.0 to 3.0); Bicarbonate (HCO3v) 20.6 mmol/L (22.0-28.0); Chloride 84 mmol/L (98-107); Hemoglobin - Calc 9.7 g/dL (12.0-16.0); Potassium 6.3 mmol/L (3.5-5.1); Sodium 116 mmol/L (138-145); vO2 Saturation-calc 96.5 % (60.0-85.0)
[2022-03-24 04:02] LABS: Calcium, Ionized 0.94 mmol/L (1.15-1.33); T. Carbon Dioxide 21.6 mmol/L (22.0-28.0)
[2022-03-24 04:18] LABS: ALT (SGPT) 32 U/L (8-55); AST (SGOT) 34 U/L (5-34); Albumin 3.9 g/dL (3.5-5.0); Alkaline Phosphatase 94 U/L (40-110); Anion Gap 28 mmol/L (10-20); BUN (Urea Nitrogen) 62 mg/dL (7.0-18.7); Bilirubin, Total 0.6 mg/dL (0.2-1.2); Calc. Creatinine Clearance 0 mL/min (70-130); Calcium 8.6 mg/dL (7.8-10.44); Carbon Dioxide 18 mmol/L (22-29); Chloride 80 mmol/L (98-107); Globulin 3.6 g/dL (2.4-3.5); Magnesium 1.8 mg/dL (1.6-2.6); Potassium 6.4 mmol/L (3.5-5.1); Protein, Total 7.5 g/dL (6.0-8.3); Sodium 120 mmol/L (136-145)
[2022-03-24 04:22] LABS: #Lymphocytes 0.7 thou/uL (1.20-3.40); #Monocytes 0.3 thou/uL (0.11-0.59); #Neutrophils 6.1 thou/uL (1.40-6.50); %Basophils 0.4 % (0.0-1.0); %Lymphocytes 9.4 % (21.0-51.0); %Monocytes 4.1 % (0.0-10.0); %Neutrophils 86.1 % (42.0-75.0); Anisocytosis SLIGHT = 6-15 cells (100X) (0-5/hpf); Hemoglobin 8.8 g/dL (12.0-16.0); Hypochromia SLIGHT = 6-15 cells (100X) (0-5/hpf); MDiff Complete? YES; Mean Corpuscular HGB CONC 29.3 g/dL (32.0-36.0); Mean Corpuscular Volume 99.2 fL (78.0-98.0); Mean Platelet Volume 7.1 fL (7.4-10.4); Platelet Count 179 thou/uL (130-400); Polychromasia SLIGHT = 2-3 cells (100X) (0-2/hpf); RBC Distribution Width 15.3 % (11.5-14.5); Red Blood Cell (RBC) Count 3.03 mill/uL (4.20-5.40); White Blood Cell (WBC) Count 7.1 thou/uL (4.8-10.8)
[2022-03-24 04:37] LABS: Glucose 1023 mg/dL (70-105)
== END 2022-03-24 05:35 | disposition short-term general hospital (02) ==
LOC: NAV ERS 02:53
DX: E11.65 Type 2 diabetes mellitus with hyperglycemia (principal); E11.10 Type 2 diabetes mellitus with ketoacidosis without coma; E11.22 Type 2 diabetes mellitus with diabetic chronic kidney disease; I12.9 Hypertensive chronic kidney disease with stage 1 through stage 4 chronic kidney disease, or unspecified chronic kidney disease; N18.9 Chronic kidney disease, unspecified; D63.1 Anemia in chronic kidney disease; Z79.899 Other long term (current) drug therapy
CPT/HCPCS: 36416; 80053; 82010; 82330; 82803; 83735; 85014; 85025; 96361; 96374; 96375; J1815; J2765; J7030

== ENCOUNTER 2022-05-18 19:11 | Emergency (ER) | payer MEDICARE, MEDICAID ==
[2022-05-18 20:02] LABS: #Eosinphils 0.1 thou/uL (0.0-0.7); #Lymphocytes 1.8 thou/uL (1.20-3.40); #Monocytes 0.4 thou/uL (0.11-0.59); #Neutrophils 2.4 thou/uL (1.40-6.50); %Basophils 0.6 % (0.0-1.0); %Eosinophils 1.4 % (0.0-10.0); %Monocytes 8.5 % (0.0-10.0); %Neutrophils 51.6 % (42.0-75.0); Hemoglobin 13.9 g/dL (12.0-16.0); Mean Corpuscular HGB CONC 30.4 g/dL (32.0-36.0); Mean Corpuscular Hemoglobin 30.4 pg (27.0-31.0); Mean Platelet Volume 7.3 fL (7.4-10.4); Platelet Count 214 thou/uL (130-400); RBC Distribution Width 16.1 % (11.5-14.5); Red Blood Cell (RBC) Count 4.55 mill/uL (4.20-5.40); White Blood Cell (WBC) Count 4.6 thou/uL (4.8-10.8)
[2022-05-18] MEDS ORDERED: Aspirin Chewable 81 MG TAB ONE (20:03)
[2022-05-18] MEDS ORDERED: NIFEdipine XL 30 MG TAB ONE (20:13)
[2022-05-18] MEDS ORDERED: Metoclopramide HCl 10 MG/2 ML VIAL ONE (20:13)
[2022-05-18] MEDS ORDERED: Carvedilol 25 MG TAB ONE (20:13)
[2022-05-18] MEDS ORDERED: diphenhydrAMINE 50 MG/ML VIAL ONE (20:13)
[2022-05-18] MEDS ORDERED: Pantoprazole 40 MG VIAL ONE (20:14)
[2022-05-18] MEDS ORDERED: Sodium Chloride 0.9% 100 ML ONE (20:14)
[2022-05-18] MEDS ORDERED: Lidocaine Viscous Sol 2% 15 ml UD Cup ONE (20:14)
[2022-05-18] MEDS ORDERED: Mag-Al Plus 1200 MG/1200 MG/120 MG/30 ML UDCUP ONE (20:14)
[2022-05-18 20:18] LABS: ALT (SGPT) 14 U/L (8-55); AST (SGOT) 17 U/L (5-34); Albumin 4.1 g/dL (3.5-5.0); Alkaline Phosphatase 78 U/L (40-110); Anion Gap 22 mmol/L (10-20); BUN (Urea Nitrogen) 31 mg/dL (7.0-18.7); Bilirubin, Total 0.6 mg/dL (0.2-1.2); Calc. Creatinine Clearance 0 mL/min (70-130); Calcium 9.8 mg/dL (7.8-10.44); Carbon Dioxide 26 mmol/L (22-29); Chloride 95 mmol/L (98-107); Estimated GFR 7; Globulin 4.5 g/dL (2.4-3.5); Glucose 129 mg/dL (70-105); Lipase 17 U/L (8-78); Potassium 4.5 mmol/L (3.5-5.1); Protein, Total 8.6 g/dL (6.0-8.3); Sodium 138 mmol/L (136-145)
[2022-05-18 20:54] LABS: Magnesium 2.2 mg/dL (1.6-2.6)
== END 2022-05-18 23:05 | disposition home or self-care (01) ==
LOC: NAV ERS 19:11
DX: K21.9 Gastro-esophageal reflux disease without esophagitis (principal); E11.9 Type 2 diabetes mellitus without complications; I10 Essential (primary) hypertension; G43.909 Migraine, unspecified, not intractable, without status migrainosus; Z79.899 Other long term (current) drug therapy
CPT/HCPCS: 36415; 71046; 80053; 83690; 83735; 84484; 85025; 93005; 94760; 96365; 96375; C9113; J1200; J2765

== ENCOUNTER 2022-06-15 12:53 | Emergency (ER) | payer MEDICARE, MEDICAID ==
[2022-06-15] MEDS ORDERED: diphenhydrAMINE 50 MG/ML VIAL ONE (13:56)
[2022-06-15] MEDS ORDERED: Metoclopramide HCl 10 MG/2 ML VIAL ONE (13:56)
[2022-06-15] MEDS ORDERED: Sodium Chloride 0.9% 1,000 ML ONE (13:56)
[2022-06-15] MEDS ORDERED: Ketorolac Tromethamine 30 MG/ML VIAL ONE (13:56)
[2022-06-15 14:16] LABS: Bicarbonate (HCO3v) 30.7 mmol/L (22.0-28.0); CO2 Tension (PvCO2) 43.5 mmHg (42.0-51.0); Calcium, Ionized 1.06 mmol/L (1.15-1.33); Chloride 96 mmol/L (98-107); Hemoglobin - Calc 15.3 g/dL (12.0-16.0); Potassium 5.1 mmol/L (3.5-5.1); Sodium 136 mmol/L (138-145); T. Carbon Dioxide 32.1 mmol/L (22.0-28.0); vO2 Saturation-calc 92.2 % (60.0-85.0)
[2022-06-15 14:25] LABS: ALT (SGPT) 27 U/L (8-55); AST (SGOT) 27 U/L (5-34); Albumin 3.9 g/dL (3.5-5.0); Alkaline Phosphatase 71 U/L (40-110); Anion Gap 22 mmol/L (10-20); BUN (Urea Nitrogen) 29 mg/dL (7.0-18.7); Bilirubin, Total 0.4 mg/dL (0.2-1.2); Calc. Creatinine Clearance 0 mL/min (70-130); Calcium 9.9 mg/dL (7.8-10.44); Carbon Dioxide 29 mmol/L (22-29); Chloride 90 mmol/L (98-107); Estimated GFR 7; Globulin 4.2 g/dL (2.4-3.5); Glucose 213 mg/dL (70-105); Lipase 22 U/L (8-78); Potassium 5.2 mmol/L (3.5-5.1); Protein, Total 8.1 g/dL (6.0-8.3); Sodium 136 mmol/L (136-145)
[2022-06-15 14:27] LABS: Phosphorus 5.6 mg/dL (2.3-4.7)
[2022-06-15 14:33] LABS: BHCG - Serum Negative (NEGATIVE); Pregs Control Bar Appear? YES (CONTROL BAR)
[2022-06-15 14:35] LABS: #Eosinphils 0.1 thou/uL (0.0-0.7); #Lymphocytes 1.4 thou/uL (1.20-3.40); #Monocytes 0.4 thou/uL (0.11-0.59); #Neutrophils 2.6 thou/uL (1.40-6.50); %Basophils 0.9 % (0.0-1.0); %Eosinophils 3.1 % (0.0-10.0); %Lymphocytes 30.7 % (21.0-51.0); %Monocytes 9.2 % (0.0-10.0); %Neutrophils 56.1 % (42.0-75.0); Hemoglobin 13.5 g/dL (12.0-16.0); Mean Corpuscular HGB CONC 30.5 g/dL (32.0-36.0); Mean Corpuscular Volume 94.9 fL (78.0-98.0); Mean Platelet Volume 7.9 fL (7.4-10.4); Platelet Count 151 thou/uL (130-400); RBC Distribution Width 12.9 % (11.5-14.5); Red Blood Cell (RBC) Count 4.68 mill/uL (4.20-5.40); White Blood Cell (WBC) Count 4.6 thou/uL (4.8-10.8)
== END 2022-06-15 16:15 | disposition home or self-care (01) ==
LOC: NAV ERS 12:53
DX: E11.43 Type 2 diabetes mellitus with diabetic autonomic (poly)neuropathy (principal); K31.84 Gastroparesis; E11.22 Type 2 diabetes mellitus with diabetic chronic kidney disease; I12.9 Hypertensive chronic kidney disease with stage 1 through stage 4 chronic kidney disease, or unspecified chronic kidney disease; N18.9 Chronic kidney disease, unspecified; E11.10 Type 2 diabetes mellitus with ketoacidosis without coma; Z79.899 Other long term (current) drug therapy
CPT/HCPCS: 80053; 82010; 82330; 82435; 82803; 83690; 83735; 84100; 84132; 84295; 84703; 85025; 96365; 96366; 96375; J1200; J1885; J2765; J7050

== ENCOUNTER 2022-07-29 11:54 | Emergency (ER) | payer MEDICARE, MEDICAID ==
[2022-07-29] MEDS ORDERED: traMADol HCl 50 MG TAB ONE (12:31)
[2022-07-29 13:10] LABS: #Eosinphils 0.1 thou/uL (0.0-0.7); #Lymphocytes 1.5 thou/uL (1.20-3.40); #Monocytes 0.3 thou/uL (0.11-0.59); #Neutrophils 2.7 thou/uL (1.40-6.50); %Basophils 0.7 % (0.0-1.0); %Eosinophils 1.3 % (0.0-10.0); %Lymphocytes 32.9 % (21.0-51.0); %Monocytes 6.7 % (0.0-10.0); %Neutrophils 58.4 % (42.0-75.0); Hemoglobin 11.6 g/dL (12.0-16.0); Mean Corpuscular HGB CONC 31.9 g/dL (32.0-36.0); Mean Corpuscular Hemoglobin 31.6 pg (27.0-31.0); Mean Corpuscular Volume 99.1 fl (78.0-98.0); Mean Platelet Volume 6.6 fL (7.4-10.4); Platelet Count 193 thou/uL (130-400); RBC Distribution Width 16.9 % (11.5-14.5); Red Blood Cell (RBC) Count 3.67 mill/uL (4.20-5.40); White Blood Cell (WBC) Count 4.6 thou/uL (4.8-10.8)
[2022-07-29 13:34] LABS: ALT (SGPT) 14 U/L (8-55); AST (SGOT) 16 U/L (5-34); Alkaline Phosphatase 78 U/L (40-110); Anion Gap 20 mmol/L (10-20); BUN (Urea Nitrogen) 16 mg/dL (7.0-18.7); Bilirubin, Total 0.7 mg/dL (0.2-1.2); Calc. Creatinine Clearance 0 mL/min (70-130); Calcium 9.2 mg/dL (7.8-10.44); Carbon Dioxide 32 mmol/L (22-29); Chloride 92 mmol/L (98-107); Estimated GFR 15; Globulin 4.4 g/dL (2.4-3.5); Glucose 217 mg/dL (70-105); Lipase 38 U/L (8-78); Potassium 3.7 mmol/L (3.5-5.1); Protein, Total 8.4 g/dL (6.0-8.3); Sodium 140 mmol/L (136-145)
== END 2022-07-29 14:10 | disposition home or self-care (01) ==
LOC: NAV ERS 11:54
DX: R10.12 Left upper quadrant pain (principal); E11.9 Type 2 diabetes mellitus without complications; I10 Essential (primary) hypertension
CPT/HCPCS: 80053; 83690; 85025; 99284

== ENCOUNTER 2022-12-19 13:38 | Emergency (ER) | payer MEDICARE, MEDICAID ==
[2022-12-19] MEDS ORDERED: Ondansetron ODT 4 MG TAB ONE (14:17)
== END 2022-12-19 14:22 | disposition home or self-care (01) ==
LOC: NAV ERS 13:38
DX: J01.90 Acute sinusitis, unspecified (principal); B96.89 Other specified bacterial agents as the cause of diseases classified elsewhere; R11.2 Nausea with vomiting, unspecified; G43.909 Migraine, unspecified, not intractable, without status migrainosus; I12.9 Hypertensive chronic kidney disease with stage 1 through stage 4 chronic kidney disease, or unspecified chronic kidney disease; N18.9 Chronic kidney disease, unspecified; E11.43 Type 2 diabetes mellitus with diabetic autonomic (poly)neuropathy; K31.84 Gastroparesis; Z99.2 Dependence on renal dialysis; Z79.899 Other long term (current) drug therapy; Z79.82 Long term (current) use of aspirin
CPT/HCPCS: 99283; Q0162

== ENCOUNTER 2023-01-04 18:07 | Emergency (ER) | payer MEDICARE, MEDICAID ==
[2023-01-04 18:59] LABS: #Eosinphils 0.2 thou/uL (0.0-0.7); #Lymphocytes 1.6 thou/uL (1.20-3.40); #Monocytes 0.5 thou/uL (0.11-0.59); #Neutrophils 3.2 thou/uL (1.40-6.50); %Basophils 0.8 % (0.0-1.0); %Eosinophils 3.9 % (0.0-10.0); %Lymphocytes 28.5 % (21.0-51.0); %Monocytes 8.9 % (0.0-10.0); %Neutrophils 57.9 % (42.0-75.0); Hemoglobin 12.9 g/dL (12.0-16.0); Mean Corpuscular HGB CONC 31.7 g/dL (32.0-36.0); Mean Platelet Volume 7.1 fL (7.4-10.4); Platelet Count 161 10x3/uL (130-400); RBC Distribution Width 13.8 % (11.5-14.5); Red Blood Cell (RBC) Count 4.04 mill/uL (4.20-5.40); White Blood Cell (WBC) Count 5.6 10x3/uL (4.8-10.8)
[2023-01-04 19:17] LABS: ALT (SGPT) 13 U/L (8-55); AST (SGOT) 14 U/L (5-34); Albumin 3.9 g/dL (3.5-5.0); Alkaline Phosphatase 56 U/L (40-110); Anion Gap 24 mmol/L (10-20); BUN (Urea Nitrogen) 69 mg/dL (7.0-18.7); Bilirubin, Total 0.5 mg/dL (0.2-1.2); Calc. Creatinine Clearance 0 mL/min (70-130); Calcium 9.3 mg/dL (7.8-10.44); Carbon Dioxide 24 mmol/L (22-29); Chloride 90 mmol/L (98-107); Estimated GFR 7; Globulin 3.7 g/dL (2.4-3.5); Glucose 282 mg/dL (70-105); Magnesium 2.1 mg/dL (1.6-2.6); Protein, Total 7.6 g/dL (6.0-8.3); Sodium 131 mmol/L (136-145)
[2023-01-04 19:40] LABS: Potassium 7.2 mmol/L (3.5-5.1)
[2023-01-04] MEDS ORDERED: Ondansetron PF 4 MG/2 ML Vial ONE (19:42)
[2023-01-04] MEDS ORDERED: Ondansetron ODT 4 MG TAB ONE (20:29)
[2023-01-04] MEDS ORDERED: Dextrose 50% Abboject 50 ML SYRINGE ONE (23:18)
[2023-01-04] MEDS ORDERED: Insulin Regular 300 UNITS/3 ML VIAL ONE (23:18)
== END 2023-01-04 23:54 | disposition short-term general hospital (02) ==
LOC: NAV ERS 18:07
DX: E87.5 Hyperkalemia (principal); E11.22 Type 2 diabetes mellitus with diabetic chronic kidney disease; I12.0 Hypertensive chronic kidney disease with stage 5 chronic kidney disease or end stage renal disease; N18.6 End stage renal disease; Z79.899 Other long term (current) drug therapy
CPT/HCPCS: 36415; 80053; 83735; 84484; 85025; 93005; 96374; 96375; J1815; J2405; J7999; Q0162

== ENCOUNTER 2023-02-09 12:39 | Emergency (ER) | payer MEDICARE, MEDICAID ==
[2023-02-09] MEDS ORDERED: Ondansetron ODT 4 MG TAB ONE (13:32)
[2023-02-09 14:02] LABS: #Eosinphils 0.1 thou/uL (0.0-0.7); #Lymphocytes 1.3 thou/uL (1.20-3.40); #Monocytes 0.5 thou/uL (0.11-0.59); #Neutrophils 5.8 thou/uL (1.40-6.50); %Basophils 0.5 % (0.0-1.0); %Eosinophils 1.4 % (0.0-10.0); %Lymphocytes 16.3 % (21.0-51.0); %Monocytes 6.1 % (0.0-10.0); %Neutrophils 75.6 % (42.0-75.0); Hemoglobin 11.5 g/dL (12.0-16.0); Mean Corpuscular HGB CONC 30.7 g/dL (32.0-36.0); Mean Corpuscular Hemoglobin 29.8 pg (27.0-31.0); Mean Platelet Volume 10.2 fL (7.4-10.4); Platelet Count 78 10x3/uL (130-400); RBC Distribution Width 14.7 % (11.5-14.5); Red Blood Cell (RBC) Count 3.85 mill/uL (4.20-5.40); White Blood Cell (WBC) Count 7.7 10x3/uL (4.8-10.8)
[2023-02-09 14:05] LABS: ALT (SGPT) 8 U/L (8-55); AST (SGOT) 14 U/L (5-34); Albumin 3.9 g/dL (3.5-5.0); Alkaline Phosphatase 58 U/L (40-110); Anion Gap 30 mmol/L (10-20); BUN (Urea Nitrogen) 94 mg/dL (7.0-18.7); Bilirubin, Total 0.5 mg/dL (0.2-1.2); Calc. Creatinine Clearance 0 mL/min (70-130); Calcium 8.7 mg/dL (7.8-10.44); Carbon Dioxide 17 mmol/L (22-29); Chloride 90 mmol/L (98-107); Estimated GFR 4; Globulin 3.9 g/dL (2.4-3.5); Glucose 377 mg/dL (70-105); Magnesium 2.1 mg/dL (1.6-2.6); Protein, Total 7.8 g/dL (6.0-8.3); Sodium 129 mmol/L (136-145)
[2023-02-09 14:06] LABS: Potassium 7.7 mmol/L (3.5-5.1)
[2023-02-09 14:30] LABS: CK (CPK) 42 U/L (29-168)
[2023-02-09] MEDS ORDERED: INSULIN REGULAR IN 0.9 % NACL 100 UNITS/100 ML BAG ONE (14:30)
[2023-02-09] MEDS ORDERED: Calcium Chloride 1 GM/10 ML Abboject SYRINGE ONE (14:35)
[2023-02-09] MEDS ORDERED: Insulin Regular 300 UNITS/3 ML VIAL ONE (14:35)
[2023-02-09] MEDS ORDERED: Sodium Bicarb 50 MEQ/50 ML Abboject 8.4% SYRINGE ONE (14:35)
[2023-02-09] MEDS ORDERED: Metoclopramide HCl 10 MG/2 ML VIAL ONE (14:35)
[2023-02-09 14:38] LABS: Phosphorus 9.6 mg/dL (2.3-4.7)
[2023-02-09] MEDS ORDERED: Sodium Chloride 0.9% 100 ML ONE (14:43)
[2023-02-09] MEDS ORDERED: hydrALAZINE 20 MG/ML VIAL ONE (14:46)
[2023-02-09 15:57] LABS: Base Excess-Venous 0.4 mmol/L (-2.0 to 3.0); Bicarbonate (HCO3v) 26.1 mmol/L (22.0-28.0); CO2 Tension (PvCO2) 45.4 mmHg (42.0-51.0); Calcium, Ionized 0.95 mmol/L (1.15-1.33); Chloride 97 mmol/L (98-107); Hemoglobin - Calc 11.9 g/dL (12.0-16.0); Potassium 6.6 mmol/L (3.5-5.1); Sodium 127 mmol/L (138-145); T. Carbon Dioxide 27.5 mmol/L (22.0-28.0); vO2 Saturation-calc 78.9 % (60.0-85.0)
== END 2023-02-09 16:20 | disposition short-term general hospital (02) ==
LOC: NAV ERS 12:39
DX: E11.65 Type 2 diabetes mellitus with hyperglycemia (principal); E87.5 Hyperkalemia; I12.0 Hypertensive chronic kidney disease with stage 5 chronic kidney disease or end stage renal disease; E11.22 Type 2 diabetes mellitus with diabetic chronic kidney disease; N18.6 End stage renal disease; E11.43 Type 2 diabetes mellitus with diabetic autonomic (poly)neuropathy; K31.84 Gastroparesis; Z79.899 Other long term (current) drug therapy; Z99.2 Dependence on renal dialysis; Z79.82 Long term (current) use of aspirin
CPT/HCPCS: 71045; 80053; 82010; 82330; 82435; 82550; 82803; 82962; 83735; 83880; 84100; 84132; 84295; 84484; 85014; 85025; 93005; J0360; 36416; 36556; 96374; 96375; 96376; J1815; J2765; Q0162

== ENCOUNTER 2023-02-25 18:23 | Emergency (ER) | payer MEDICARE, MEDICAID ==
[2023-02-25] MEDS ORDERED: Bacitracin 1 PK ONE (18:48)
[2023-02-25] MEDS ORDERED: traMADol HCl 50 MG TAB ONE (19:02)
== END 2023-02-25 19:34 | disposition home or self-care (01) ==
LOC: NAV ERS 18:23
DX: S80.01XA Contusion of right knee, initial encounter (principal); S60.221A Contusion of right hand, initial encounter; S80.12XA Contusion of left lower leg, initial encounter; S50.312A Abrasion of left elbow, initial encounter; E11.43 Type 2 diabetes mellitus with diabetic autonomic (poly)neuropathy; K31.84 Gastroparesis; I12.9 Hypertensive chronic kidney disease with stage 1 through stage 4 chronic kidney disease, or unspecified chronic kidney disease; E11.22 Type 2 diabetes mellitus with diabetic chronic kidney disease; N18.9 Chronic kidney disease, unspecified; W18.09XA Striking against other object with subsequent fall, initial encounter

== ENCOUNTER 2023-03-23 00:58 | Emergency (ER) | payer MEDICARE, MEDICAID ==
[2023-03-23] MEDS ORDERED: NIFEdipine XL 30 MG TAB ONE (02:01)
[2023-03-23] MEDS ORDERED: Methocarbamol 500 MG TAB PO SCH (02:15)
[2023-03-23 02:20] LABS: #Eosinphils 0.2 thou/uL (0.0-0.7); #Lymphocytes 1.3 thou/uL (1.20-3.40); #Monocytes 0.4 thou/uL (0.11-0.59); #Neutrophils 5.4 thou/uL (1.40-6.50); %Basophils 0.6 % (0.0-1.0); %Eosinophils 2.2 % (0.0-10.0); %Lymphocytes 18.1 % (21.0-51.0); %Neutrophils 74.1 % (42.0-75.0); Hemoglobin 7.4 g/dL (12.0-16.0); Mean Corpuscular HGB CONC 32.6 g/dL (32.0-36.0); Mean Corpuscular Hemoglobin 30.1 pg (27.0-31.0); Mean Corpuscular Volume 92.4 fl (78.0-98.0); Mean Platelet Volume 8.1 fL (7.4-10.4); Platelet Count 208 10x3/uL (130-400); RBC Distribution Width 14.3 % (11.5-14.5); Red Blood Cell (RBC) Count 2.45 mill/uL (4.20-5.40); White Blood Cell (WBC) Count 7.3 10x3/uL (4.8-10.8)
[2023-03-23] MEDS ORDERED: clonazePAM 0.5 MG TAB ONE (02:28)
[2023-03-23 02:31] LABS: ALT (SGPT) 16 U/L (8-55); AST (SGOT) 17 U/L (5-34); Albumin 3.8 g/dL (3.5-5.0); Alkaline Phosphatase 59 U/L (40-110); Anion Gap 27 mmol/L (10-20); BUN (Urea Nitrogen) 85 mg/dL (7.0-18.7); Bilirubin, Total 0.3 mg/dL (0.2-1.2); CK (CPK) 71 U/L (29-168); Calc. Creatinine Clearance 0 mL/min (70-130); Calcium 8.2 mg/dL (7.8-10.44); Carbon Dioxide 19 mmol/L (22-29); Chloride 92 mmol/L (98-107); Estimated GFR 5; Globulin 3.7 g/dL (2.4-3.5); Glucose 181 mg/dL (70-105); Magnesium 2.4 mg/dL (1.6-2.6); Protein, Total 7.5 g/dL (6.0-8.3); Sodium 132 mmol/L (136-145)
== END 2023-03-23 04:37 | disposition short-term general hospital (02) ==
LOC: NAV ERS 00:58
DX: E11.22 Type 2 diabetes mellitus with diabetic chronic kidney disease (principal); D63.8 Anemia in other chronic diseases classified elsewhere; N18.9 Chronic kidney disease, unspecified; G43.909 Migraine, unspecified, not intractable, without status migrainosus; Z79.82 Long term (current) use of aspirin
CPT/HCPCS: 80053; 82550; 83735; 85025; 93005

== ENCOUNTER 2023-10-02 18:06 | Emergency (ER) | payer MEDICARE, MEDICAID ==
[2023-10-02] MEDS ORDERED: Acetaminophen 500 MG TAB ONE (19:08)
== END 2023-10-02 19:49 | disposition home or self-care (01) ==
LOC: NAV ERS 18:06
DX: S60.221A Contusion of right hand, initial encounter (principal); I12.0 Hypertensive chronic kidney disease with stage 5 chronic kidney disease or end stage renal disease; E10.22 Type 1 diabetes mellitus with diabetic chronic kidney disease; N18.6 End stage renal disease; K21.9 Gastro-esophageal reflux disease without esophagitis; Z79.899 Other long term (current) drug therapy; Z79.4 Long term (current) use of insulin; Z99.2 Dependence on renal dialysis; X58.XXXA Exposure to other specified factors, initial encounter

== ENCOUNTER 2023-11-27 08:56 | Emergency (ER) | payer MEDICARE, MEDICAID | END 2023-11-27 10:11 | disposition home or self-care (01) | LOC: NAV ERS 08:56 | DX: B34.9 Viral infection, unspecified (principal); E11.9 Type 2 diabetes mellitus without complications; I10 Essential (primary) hypertension; Z79.4 Long term (current) use of insulin; Z79.899 Other long term (current) drug therapy; Z79.82 Long term (current) use of aspirin | CPT/HCPCS: 87804; 99283 ==

== ENCOUNTER 2023-12-02 10:08 | Emergency (ER) | payer MEDICARE, MEDICAID, OTHER | END 2023-12-02 12:15 | disposition home or self-care (01) | LOC: NAV ERS 10:08 | DX: S32.2XXA Fracture of coccyx, initial encounter for closed fracture (principal); I12.0 Hypertensive chronic kidney disease with stage 5 chronic kidney disease or end stage renal disease; E10.22 Type 1 diabetes mellitus with diabetic chronic kidney disease; N18.6 End stage renal disease; G43.909 Migraine, unspecified, not intractable, without status migrainosus; K21.9 Gastro-esophageal reflux disease without esophagitis; Z79.82 Long term (current) use of aspirin; Z79.4 Long term (current) use of insulin; W19.XXXA Unspecified fall, initial encounter | CPT/HCPCS: 72131; 72192 ==

== ENCOUNTER 2024-05-27 12:24 | Emergency (ER) | payer MEDICARE, MEDICAID | END 2024-05-27 14:13 | disposition home or self-care (01) | LOC: NAV ERS 12:24 | DX: S93.401A Sprain of unspecified ligament of right ankle, initial encounter (principal); E10.9 Type 1 diabetes mellitus without complications; X50.0XXA Overexertion from strenuous movement or load, initial encounter ==

== ENCOUNTER 2024-06-27 14:41 | Emergency (ER) | payer MEDICARE, MEDICAID ==
[2024-06-27 15:18] LABS: #Basophils 0.1 thou/uL (0.0-0.2); #Eosinophils 0.3 thou/uL (0.0-0.7); #Lymphocytes 1.3 thou/uL (1.20-3.40); #Monocytes 0.5 thou/uL (0.11-0.59); #Neutrophils 4.2 thou/uL (1.40-6.50); %Basophils 1.2 % (0.0-1.0); %Eosinophils 4.2 % (0.0-10.0); %Lymphocytes 20.8 % (21.0-51.0); %Monocytes 7.2 % (0.0-10.0); %Neutrophils 66.6 % (42.0-75.0); Hematocrit 42.9 % (36.0-47.0); Hemoglobin 13.5 g/dL (12.0-16.0); Mean Corpuscular HGB CONC 31.4 g/dL (32.0-36.0); Mean Corpuscular Volume 98.7 fl (78.0-98.0); Mean Platelet Volume 7.4 fL (7.4-10.4); Platelet Count 207 10x3/uL (130-400); RBC Distribution Width 14.5 % (11.5-14.5); Red Blood Cell (RBC) Count 4.35 mill/uL (4.20-5.40); White Blood Cell (WBC) Count 6.2 10x3/uL (4.8-10.8)
[2024-06-27 15:26] LABS: Anion Gap 27 mmol/L (10-20); BUN (Urea Nitrogen) 64 mg/dL (7.0-18.7); Calc. Creatinine Clearance 0 mL/min (70-130); Calcium 9.1 mg/dL (7.8-10.44); Carbon Dioxide 17 mmol/L (22-29); Chloride 91 mmol/L (98-107); Estimated GFR 6; Glucose 321 mg/dL (70-105); Sodium 129 mmol/L (136-145)
[2024-06-27 15:27] LABS: Potassium 6.4 mmol/L (3.5-5.1)
[2024-06-27] MEDS ORDERED: Sodium Bicarb 50 MEQ/50 ML Abboject 8.4% SYRINGE ONE (16:44)
[2024-06-27] MEDS ORDERED: Calcium Gluc 4.6 MEQ/10 ML (100 MG/ML) ONE ×2 (16:44→16:45)
[2024-06-27] MEDS ORDERED: Insulin Regular, Human 100 UNIT/ML 10 ML VIAL ONE (16:44)
[2024-06-27] MEDS ORDERED: Albuterol 2.5 MG (0.5 mL) NEB ONE (16:44)
[2024-06-27 18:40] LABS: Anion Gap 27 mmol/L (10-20); BUN (Urea Nitrogen) 67 mg/dL (7.0-18.7); Calc. Creatinine Clearance 0 mL/min (70-130); Calcium 9.8 mg/dL (7.8-10.44); Carbon Dioxide 19 mmol/L (22-29); Chloride 93 mmol/L (98-107); Estimated GFR 5; Glucose 96 mg/dL (70-105); Potassium 5.1 mmol/L (3.5-5.1); Sodium 134 mmol/L (136-145)
[2024-06-27] MEDS ORDERED: Dextrose 50% Abboject 50 ML SYRINGE ONE (18:46)
== END 2024-06-27 19:25 | disposition home or self-care (01) ==
LOC: NAV ERS 14:41
DX: E87.5 Hyperkalemia (principal); E10.22 Type 1 diabetes mellitus with diabetic chronic kidney disease; N18.6 End stage renal disease; E10.43 Type 1 diabetes mellitus with diabetic autonomic (poly)neuropathy; K31.84 Gastroparesis; Z99.2 Dependence on renal dialysis; Z94.0 Kidney transplant status; Z79.82 Long term (current) use of aspirin; Z79.899 Other long term (current) drug therapy
CPT/HCPCS: 80048; 85025; 93005; 96374; 96375; J0612; J1815; J7611; J7999

== ENCOUNTER 2024-07-13 23:49 | Emergency (ER) | payer MEDICARE, MEDICAID ==
[2024-07-14] MEDS ORDERED: hydrOXYzine 25 MG TAB ONE (00:14)
== END 2024-07-14 00:26 | disposition home or self-care (01) ==
LOC: NAV ERS 23:49
DX: F41.1 Generalized anxiety disorder (principal); E10.43 Type 1 diabetes mellitus with diabetic autonomic (poly)neuropathy; K31.84 Gastroparesis; N18.6 End stage renal disease; Z99.2 Dependence on renal dialysis
CPT/HCPCS: 99284

== ENCOUNTER 2024-07-14 03:52 | Emergency (ER) | payer MEDICARE, MEDICAID ==
[2024-07-14] MEDS ORDERED: Morphine 4 MG/ML VIAL ONE ×2 (04:35→06:47)
[2024-07-14] MEDS ORDERED: Ondansetron PF 4 MG/2 ML Vial ONE (04:35)
== END 2024-07-14 07:07 | disposition short-term general hospital (02) ==
LOC: NAV ERS 03:52
DX: S82.251A Displaced comminuted fracture of shaft of right tibia, initial encounter for closed fracture (principal); S82.451A Displaced comminuted fracture of shaft of right fibula, initial encounter for closed fracture; E10.43 Type 1 diabetes mellitus with diabetic autonomic (poly)neuropathy; K31.84 Gastroparesis; K21.9 Gastro-esophageal reflux disease without esophagitis; X50.1XXA Overexertion from prolonged static or awkward postures, initial encounter; Y93.89 Activity, other specified; Z79.82 Long term (current) use of aspirin; Z99.2 Dependence on renal dialysis; Z79.899 Other long term (current) drug therapy
CPT/HCPCS: 73610; J2272; J2405; 96374; 96375; 96376

== ENCOUNTER 2024-07-19 07:35 | Inpatient (IN) | payer MEDICARE, MEDICAID ==
[2024-07-19] MEDS ORDERED: Acetaminophen 325 MG TAB PO PRN (18:26)
[2024-07-19] MEDS ORDERED: Glucagon 1 MG/ML KIT IM PRN (18:26)
[2024-07-19] MEDS ORDERED: Dextrose 50% Abboject 50 ML SYRINGE SLOW IVP PRN (18:26)
[2024-07-19] MEDS ORDERED: Calcium Carbonate 500 MG ChewTAB PO PRN (18:26)
[2024-07-19] MEDS ORDERED: Senokot S 8.6-50 MG TAB PO PRN (18:26)
[2024-07-19] MEDS ORDERED: Docusate 100 MG CAP PO SCH (18:45)
[2024-07-19] MEDS ORDERED: Insulin Lispro 100 UNIT/ML 10 ML VIAL SC PRN (18:46)
[2024-07-19] MEDS: NIFEdipine XL 60 MG ER.TAB PO SCH (20:23)
[2024-07-19] MEDS: Metoclopramide HCl 10 MG TAB PO SCH ×2 (20:23→21:27)
[2024-07-19] MEDS: Carvedilol 25 MG TAB PO SCH (20:30)
[2024-07-19] MEDS: Heparin 5,000 UNITS/ML VIAL SC SCH (20:30)
[2024-07-19] MEDS: Ondansetron ODT 4 MG TAB SL PRN (20:41)
[2024-07-19] MEDS ORDERED: Promethazine HCl 25 MG/ML VIAL IM PRN (21:59)
[2024-07-19] MEDS ORDERED: Promethazine HCl 25 MG SUPP PR SCH (22:00)
[2024-07-19] MEDS ORDERED: Promethazine HCl 25 MG/ML VIAL IM SCH (22:00)
[2024-07-20] MEDS: Pantoprazole DR 40 MG TAB PO SCH (08:57)
[2024-07-20] MEDS: Aspirin 81 mg Enteric Coated Tablet PO SCH (08:58)
[2024-07-20] MEDS: Carvedilol 25 MG TAB PO SCH (08:58)
[2024-07-20] MEDS: predniSONE 5 MG TAB PO SCH (08:58)
[2024-07-20] MEDS: Polyethylene Glycol 3350 17 GM Packet PO SCH (09:02)
[2024-07-20] MEDS: HYDROcodone/Acetaminophen 7.5/325 mg Tablet PO PRN (10:49)
[2024-07-20 11:52] LABS: #Basophils 0.1 thou/uL (0.0-0.2); #Eosinophils 0.2 thou/uL (0.0-0.7); #Lymphocytes 0.7 thou/uL (1.20-3.40); #Monocytes 0.6 thou/uL (0.11-0.59); #Neutrophils 4.8 thou/uL (1.40-6.50); %Basophils 0.9 % (0.0-1.0); %Eosinophils 3.2 % (0.0-10.0); %Lymphocytes 10.7 % (21.0-51.0); %Monocytes 8.9 % (0.0-10.0); %Neutrophils 76.3 % (42.0-75.0); Hematocrit 36.1 % (36.0-47.0); Hemoglobin 11.5 g/dL (12.0-16.0); Mean Corpuscular HGB CONC 31.8 g/dL (32.0-36.0); Mean Corpuscular Hemoglobin 31.7 pg (27.0-31.0); Mean Corpuscular Volume 99.7 fl (78.0-98.0); Mean Platelet Volume 6.9 fL (7.4-10.4); Platelet Count 212 10x3/uL (130-400); RBC Distribution Width 14.3 % (11.5-14.5); Red Blood Cell (RBC) Count 3.62 mill/uL (4.20-5.40); White Blood Cell (WBC) Count 6.3 10x3/uL (4.8-10.8)
[2024-07-20 12:02] LABS: ALT (SGPT) Less than 7 U/L (8-55); AST (SGOT) 15 U/L (5-34); Albumin 2.9 g/dL (3.5-5.0); Alkaline Phosphatase 68 U/L (40-110); Anion Gap 23 mmol/L (10-20); BUN (Urea Nitrogen) 44 mg/dL (7.0-18.7); Bilirubin, Total 0.4 mg/dL (0.2-1.2); Calc. Creatinine Clearance 18 mL/min (70-130); Calcium 8.5 mg/dL (7.8-10.44); Carbon Dioxide 22 mmol/L (22-29); Chloride 98 mmol/L (98-107); Estimated GFR 7; Globulin 3.8 g/dL (2.4-3.5); Glucose 114 mg/dL (70-105); Magnesium 2.2 mg/dL (1.6-2.6); Phosphorus 8.1 mg/dL (2.3-4.7); Protein, Total 6.7 g/dL (6.0-8.3); Sodium 137 mmol/L (136-145)
[2024-07-20 13:26] LABS: Critical Call Chemistry CALLED TO NUR.WLN @1327; Potassium 6.4 mmol/L (3.5-5.1)
[2024-07-20] MEDS: LOKELMA 10 GM PACKET PO SCH (16:29)
[2024-07-21] MEDS ORDERED: LOKELMA 10 GM PACKET PO SCH (09:00)
[2024-07-21] MEDS ORDERED: Docusate 100 MG CAP PO PRN (09:51)
[2024-07-21] MEDS: HYDROcodone/Acetaminophen 7.5/325 mg Tablet PO PRN (13:42)
[2024-07-21] MEDS: LOKELMA 10 GM PACKET PO SCH (15:28)
[2024-07-21] MEDS: Methocarbamol 500 MG TAB PO PRN (22:05)
[2024-07-21] MEDS ORDERED: HYDROcodone/Acetaminophen 5/325 mg Tablet PO PRN (23:59)
[2024-07-22] MEDS: hydrOXYzine 25 MG TAB PO SCH (02:09)
[2024-07-22] MEDS ORDERED: HYDROcodone/Acetaminophen 5/325 mg Tablet PO PRN (08:12)
[2024-07-22] MEDS: Docusate 100 MG CAP PO SCH (08:15)
[2024-07-22] MEDS: LOKELMA 10 GM PACKET PO SCH (10:25)
[2024-07-22] MEDS: Metoclopramide HCl 10 MG TAB PO SCH (11:58)
[2024-07-22] MEDS: HYDROcodone/Acetaminophen 7.5/325 mg Tablet PO PRN ×2 (14:03→19:53)
[2024-07-22] MEDS ORDERED: HYDROcodone/Acetaminophen 7.5/325 mg Tablet PO PRN (18:13)
[2024-07-22] MEDS: traZODone HCl 50 MG TAB PO PRN (22:54)
[2024-07-22] MEDS: hydrOXYzine Pamoate 25 mg Capsule PO PRN (22:54)
[2024-07-23 12:11] LABS: #Eosinophils 0.2 thou/uL (0.0-0.7); #Lymphocytes 1.8 thou/uL (1.20-3.40); #Monocytes 0.4 thou/uL (0.11-0.59); #Neutrophils 3.2 thou/uL (1.40-6.50); %Basophils 0.9 % (0.0-1.0); %Eosinophils 3.3 % (0.0-10.0); %Lymphocytes 32.1 % (21.0-51.0); %Monocytes 6.3 % (0.0-10.0); %Neutrophils 57.5 % (42.0-75.0); Hematocrit 39.9 % (36.0-47.0); Hemoglobin 12.8 g/dL (12.0-16.0); Mean Corpuscular HGB CONC 32.1 g/dL (32.0-36.0); Mean Corpuscular Hemoglobin 30.4 pg (27.0-31.0); Mean Corpuscular Volume 94.8 fl (78.0-98.0); Mean Platelet Volume 6.9 fL (7.4-10.4); Platelet Count 280 10x3/uL (130-400); RBC Distribution Width 13.5 % (11.5-14.5); Red Blood Cell (RBC) Count 4.21 mill/uL (4.20-5.40); White Blood Cell (WBC) Count 5.5 10x3/uL (4.8-10.8)
[2024-07-23 12:29] LABS: ALT (SGPT) Less than 7 U/L (8-55); AST (SGOT) 18 U/L (5-34); Albumin 3.4 g/dL (3.5-5.0); Alkaline Phosphatase 78 U/L (40-110); Anion Gap 17 mmol/L (10-20); BUN (Urea Nitrogen) 18 mg/dL (7.0-18.7); Bilirubin, Total 0.4 mg/dL (0.2-1.2); Calc. Creatinine Clearance 41 mL/min (70-130); Calcium 9.4 mg/dL (7.8-10.44); Carbon Dioxide 28 mmol/L (22-29); Chloride 91 mmol/L (98-107); Estimated GFR 18; Globulin 4.9 g/dL (2.4-3.5); Glucose 154 mg/dL (70-105); Protein, Total 8.3 g/dL (6.0-8.3); Sodium 133 mmol/L (136-145)
[2024-07-23] MEDS ORDERED: Polyethylene Glycol 3350 17 GM Packet PO PRN (12:36)
[2024-07-24] MEDS: FLUoxetine HCl 20 MG CAP PO SCH (14:27)
[2024-07-24] MEDS: Metoclopramide HCl 10 MG TAB PO SCH (16:31)
[2024-07-24] MEDS: HYDROcodone/Acetaminophen 5/325 mg Tablet PO PRN (17:54)
[2024-07-24] MEDS: traZODone HCl 50 MG TAB PO PRN (20:59)
[2024-07-25] MEDS: FLUoxetine HCl 20 MG CAP PO SCH (08:51)
[2024-07-25] MEDS: LOKELMA 10 GM PACKET PO SCH ×2 (10:42→20:08)
[2024-07-26 06:36] LABS: Hematocrit 33.7 % (36.0-47.0); Hemoglobin 10.9 g/dL (12.0-16.0); Mean Corpuscular HGB CONC 32.4 g/dL (32.0-36.0); Mean Corpuscular Hemoglobin 30.3 pg (27.0-31.0); Mean Corpuscular Volume 93.5 fl (78.0-98.0); Mean Platelet Volume 6.5 fL (7.4-10.4); Platelet Count 297 10x3/uL (130-400); RBC Distribution Width 13.3 % (11.5-14.5); White Blood Cell (WBC) Count 7.5 10x3/uL (4.8-10.8)
[2024-07-26 06:50] LABS: ALT (SGPT) Less than 7 U/L (8-55); AST (SGOT) 12 U/L (5-34); Alkaline Phosphatase 69 U/L (40-110); Anion Gap 26 mmol/L (10-20); BUN (Urea Nitrogen) 102 mg/dL (7.0-18.7); Bilirubin, Total 0.4 mg/dL (0.2-1.2); Calc. Creatinine Clearance 13 mL/min (70-130); Calcium 8.9 mg/dL (7.8-10.44); Carbon Dioxide 21 mmol/L (22-29); Chloride 88 mmol/L (98-107); Estimated GFR 5; Glucose 149 mg/dL (70-105); Magnesium 2.5 mg/dL (1.6-2.6); Sodium 130 mmol/L (136-145)
[2024-07-26 07:27] LABS: Critical Call Chemistry CALLED TO NUR.AJ3 @ 0729; Phosphorus 10.5 mg/dL (2.3-4.7)
[2024-07-28 06:31] LABS: #Eosinophils 0.2 thou/uL (0.0-0.7); #Monocytes 0.7 thou/uL (0.11-0.59); #Neutrophils 3.8 thou/uL (1.40-6.50); %Basophils 0.5 % (0.0-1.0); %Eosinophils 2.3 % (0.0-10.0); %Lymphocytes 29.8 % (21.0-51.0); %Monocytes 10.5 % (0.0-10.0); %Neutrophils 56.8 % (42.0-75.0); Hematocrit 33.5 % (36.0-47.0); Hemoglobin 10.8 g/dL (12.0-16.0); Mean Corpuscular HGB CONC 32.3 g/dL (32.0-36.0); Mean Corpuscular Hemoglobin 30.3 pg (27.0-31.0); Mean Corpuscular Volume 93.9 fl (78.0-98.0); Mean Platelet Volume 6.6 fL (7.4-10.4); Platelet Count 292 10x3/uL (130-400); RBC Distribution Width 13.6 % (11.5-14.5); Red Blood Cell (RBC) Count 3.57 mill/uL (4.20-5.40); White Blood Cell (WBC) Count 6.7 10x3/uL (4.8-10.8)
[2024-07-28 06:48] LABS: ALT (SGPT) Less than 7 U/L (8-55); AST (SGOT) 13 U/L (5-34); Albumin 3.2 g/dL (3.5-5.0); Alkaline Phosphatase 67 U/L (40-110); Anion Gap 23 mmol/L (10-20); BUN (Urea Nitrogen) 76 mg/dL (7.0-18.7); Bilirubin, Total 0.4 mg/dL (0.2-1.2); Calc. Creatinine Clearance 14 mL/min (70-130); Calcium 8.9 mg/dL (7.8-10.44); Carbon Dioxide 24 mmol/L (22-29); Chloride 90 mmol/L (98-107); Estimated GFR 5; Globulin 3.7 g/dL (2.4-3.5); Glucose 110 mg/dL (70-105); Magnesium 2.5 mg/dL (1.6-2.6); Potassium 5.4 mmol/L (3.5-5.1); Protein, Total 6.9 g/dL (6.0-8.3); Sodium 132 mmol/L (136-145)
[2024-07-28 06:55] LABS: Phosphorus 9.7 mg/dL (2.3-4.7)
[2024-07-28 06:56] LABS: Critical Call Chemistry CALLED TO NUR.RMZ @ 0657
[2024-07-30] MEDS: HYDROcodone/Acetaminophen 5/325 mg Tablet PO PRN (21:35)
[2024-08-01 05:53] VITALS: BMI 37.3
[2024-08-02 06:52] LABS: #Basophils 0.1 thou/uL (0.0-0.2); #Eosinophils 0.1 thou/uL (0.0-0.7); #Lymphocytes 2.2 thou/uL (1.20-3.40); #Monocytes 0.8 thou/uL (0.11-0.59); #Neutrophils 4.8 thou/uL (1.40-6.50); %Basophils 0.7 % (0.0-1.0); %Eosinophils 1.6 % (0.0-10.0); %Lymphocytes 27.4 % (21.0-51.0); %Monocytes 9.8 % (0.0-10.0); %Neutrophils 60.4 % (42.0-75.0); Hematocrit 30.5 % (36.0-47.0); Hemoglobin 10.2 g/dL (12.0-16.0); Mean Corpuscular HGB CONC 33.5 g/dL (32.0-36.0); Mean Corpuscular Hemoglobin 30.8 pg (27.0-31.0); Mean Platelet Volume 6.7 fL (7.4-10.4); Platelet Count 259 10x3/uL (130-400); RBC Distribution Width 13.2 % (11.5-14.5); Red Blood Cell (RBC) Count 3.32 mill/uL (4.20-5.40); White Blood Cell (WBC) Count 7.9 10x3/uL (4.8-10.8)
[2024-08-02 07:02] LABS: ALT (SGPT) 8 U/L (8-55); AST (SGOT) 12 U/L (5-34); Albumin 3.2 g/dL (3.5-5.0); Alkaline Phosphatase 71 U/L (40-110); Anion Gap 26 mmol/L (10-20); BUN (Urea Nitrogen) 99 mg/dL (7.0-18.7); Bilirubin, Total 0.4 mg/dL (0.2-1.2); Calc. Creatinine Clearance 11 mL/min (70-130); Carbon Dioxide 21 mmol/L (22-29); Chloride 91 mmol/L (98-107); Estimated GFR 5; Globulin 3.8 g/dL (2.4-3.5); Glucose 107 mg/dL (70-105); Magnesium 2.6 mg/dL (1.6-2.6); Sodium 132 mmol/L (136-145)
[2024-08-02 07:23] LABS: Critical Call Chemistry CALLED TO NUR RMZ @ 0724
[2024-08-02 07:24] LABS: Phosphorus 10.7 mg/dL (2.3-4.7)
[2024-08-02] MEDS: Sevelamer Carbonate 800 MG TAB PO SCH (17:06)
[2024-08-03 05:59] VITALS: BMI 37.0
[2024-08-03 07:24] VITALS: BP 136/72; TEMP 98.9
[2024-08-03] MEDS: Loperamide HCl 2 MG CAP PO PRN (09:45)
== END 2024-08-03 14:17 | disposition home or self-care (01) | DRG 559 ==
LOC: NAV ACUTE 18:10
PROVIDERS: ADMIT Student in an Organized Health Care Education/Training Program; ATTEND Student in an Organized Health Care Education/Training Program
DX: S82.201D Unspecified fracture of shaft of right tibia, subsequent encounter for closed fracture with routine healing (principal); N18.6 End stage renal disease; E10.22 Type 1 diabetes mellitus with diabetic chronic kidney disease; K21.9 Gastro-esophageal reflux disease without esophagitis; F41.9 Anxiety disorder, unspecified; G47.30 Sleep apnea, unspecified; E87.5 Hyperkalemia; E83.39 Other disorders of phosphorus metabolism; F32.A Depression, unspecified; G43.909 Migraine, unspecified, not intractable, without status migrainosus; I10 Essential (primary) hypertension; Z88.2 Allergy status to sulfonamides; Z88.8 Allergy status to other drugs, medicaments and biological substances; Z79.899 Other long term (current) drug therapy; Z83.3 Family history of diabetes mellitus; S82.401D Unspecified fracture of shaft of right fibula, subsequent encounter for closed fracture with routine healing; E10.43 Type 1 diabetes mellitus with diabetic autonomic (poly)neuropathy
CPT/HCPCS: 36416; 80053; 83735; 84100; 85025; 85027; 36415-59; J1644; J7512; Q0162; Q0177

== ENCOUNTER 2024-11-04 12:15 | Emergency (ER) | payer MEDICARE, MEDICAID | END 2024-11-04 13:19 | disposition home or self-care (01) | LOC: NAV ERS 12:15 | DX: S61.215A Laceration without foreign body of left ring finger without damage to nail, initial encounter (principal); E10.22 Type 1 diabetes mellitus with diabetic chronic kidney disease; Z99.2 Dependence on renal dialysis; Z79.01 Long term (current) use of anticoagulants; W26.0XXA Contact with knife, initial encounter; Y93.G1 Activity, food preparation and clean up | CPT/HCPCS: 12001; 99282 ==

== ENCOUNTER 2024-12-22 21:36 | Emergency (ER) | payer MEDICARE, MEDICAID ==
[2024-12-22] MEDS ORDERED: methylPREDNISolone Sod Succ/PF 125 MG/2 ML VIAL ONE (22:26)
[2024-12-22] MEDS ORDERED: Famotidine/PF 20 mg/2ml Vial ONE (22:26)
[2024-12-22] MEDS ORDERED: diphenhydrAMINE 50 MG/ML VIAL ONE (22:26)
[2024-12-22] MEDS ORDERED: cefTRIAXone (ROCEPHIN) 1 GM VIAL ONE (22:30)
[2024-12-22] MEDS ORDERED: Sodium Chloride 0.9% 100 ML ONE (22:30)
[2024-12-22 22:33] LABS: #Eosinophils 0.3 thou/uL (0.0-0.7); #Lymphocytes 1.3 thou/uL (1.20-3.40); #Monocytes 0.4 thou/uL (0.11-0.59); %Basophils 0.4 % (0.0-1.0); %Lymphocytes 25.6 % (21.0-51.0); %Monocytes 7.7 % (0.0-10.0); %Neutrophils 60.3 % (42.0-75.0); Hematocrit 39.1 % (36.0-47.0); Hemoglobin 11.6 g/dL (12.0-16.0); Mean Corpuscular HGB CONC 29.7 g/dL (32.0-36.0); Mean Corpuscular Hemoglobin 27.8 pg (27.0-31.0); Mean Corpuscular Volume 93.6 fl (78.0-98.0); Mean Platelet Volume 5.6 fL (7.4-10.4); Platelet Count 309 10x3/uL (130-400); RBC Distribution Width 18.4 % (11.5-14.5); Red Blood Cell (RBC) Count 4.18 mill/uL (4.20-5.40)
[2024-12-22 22:47] LABS: ALT (SGPT) 15 U/L (Less than 34); AST (SGOT) 23 U/L (11-34); Albumin 3.6 g/dL (3.1-4.5); Alkaline Phosphatase 86 U/L (40-110); Anion Gap 19 mmol/L (10-20); BUN (Urea Nitrogen) 26 mg/dL (7.0-18.7); Bilirubin, Total 0.3 mg/dL (0.3-1.2); Calc. Creatinine Clearance 0 mL/min (70-130); Calcium 9.2 mg/dL (7.8-10.44); Carbon Dioxide 30 mmol/L (22-29); Chloride 92 mmol/L (98-107); Estimated GFR 10; Globulin 4.5 g/dL (2.4-3.5); Glucose 163 mg/dL (70-105); Potassium 5.3 mmol/L (3.5-5.1); Protein, Total 8.1 g/dL (6.0-8.3); Sodium 136 mmol/L (136-145)
[2024-12-22] MEDS ORDERED: Famotidine/PF 20 mg/2ml Vial SLOW IVP SCH (23:00)
[2024-12-22] MEDS ORDERED: Insulin Regular, Human 100 UNIT/ML 10 ML VIAL SC SCH (23:30)
[2024-12-22] MEDS ORDERED: Dextrose 50% Abboject 50 ML SYRINGE ONE (23:30)
[2024-12-22] MEDS ORDERED: NIFEdipine XL 30 MG ER.TAB ONE (23:36)
[2024-12-23 00:54] LABS: Anion Gap 19 mmol/L (10-20); BUN (Urea Nitrogen) 28 mg/dL (7.0-18.7); Calc. Creatinine Clearance 0 mL/min (70-130); Calcium 9.4 mg/dL (7.8-10.44); Carbon Dioxide 26 mmol/L (22-29); Chloride 96 mmol/L (98-107); Estimated GFR 10; Glucose 61 mg/dL (70-105); Potassium 4.8 mmol/L (3.5-5.1); Sodium 136 mmol/L (136-145)
[2024-12-23] MEDS ORDERED: Acetaminophen 325 MG TAB ONE (01:30)
== END 2024-12-23 03:21 | disposition short-term general hospital (02) ==
LOC: NAV ERS 21:36
DX: L03.115 Cellulitis of right lower limb (principal); L50.0 Allergic urticaria; E87.5 Hyperkalemia; E10.22 Type 1 diabetes mellitus with diabetic chronic kidney disease; N18.6 End stage renal disease; K21.9 Gastro-esophageal reflux disease without esophagitis; Z79.82 Long term (current) use of aspirin; Z79.899 Other long term (current) drug therapy; Z99.2 Dependence on renal dialysis
CPT/HCPCS: 80048; 80053; 83605; 85025; 87040; 93005; 96374; 96375; J0696; J1200; J1815; J2919; J3490; J7999

== ENCOUNTER 2025-02-17 15:38 | Emergency (ER) | payer MEDICARE, MEDICAID ==
[2025-02-17] MEDS ORDERED: Lidocaine Viscous Sol 2% 15 ml UD Cup ONE (17:07)
[2025-02-17] MEDS ORDERED: Mag-Al Plus 1200/1200/120 MG (30 mL) UDCUP ONE (17:07)
[2025-02-17] MEDS ORDERED: Ketorolac Tromethamine 30 MG (1 mL) VIAL ONE (17:07)
[2025-02-17] MEDS ORDERED: Pantoprazole 40 MG VIAL ONE (17:07)
[2025-02-17] MEDS ORDERED: diphenhydrAMINE 50 MG/ML VIAL ONE (17:07)
[2025-02-17] MEDS ORDERED: Sodium Chloride 0.9% 1,000 ML ONE (17:08)
== END 2025-02-17 18:50 | disposition home or self-care (01) ==
LOC: NAV ERS 15:38
DX: G43.909 Migraine, unspecified, not intractable, without status migrainosus (principal); K21.9 Gastro-esophageal reflux disease without esophagitis; E10.9 Type 1 diabetes mellitus without complications; Z79.899 Other long term (current) drug therapy
CPT/HCPCS: 96361; 96374; 96375; 99283; J1200; J1885; J2470; J7030